=== PATIENT | female | born 1930 | race Hispanic/Latino ===

== ENCOUNTER 2016-12-11 17:18 | Inpatient (IN) | payer MEDICARE ==
--- NOTE | 2016-12-11 18:11 | Emergency Department Report ---
Chief Complaint: Dyspnea/Respdistress Stated Complaint: STAGE 5 KIDNEY FAILURE/TUNDE Time Seen by Provider: 12/11/16 18:04 - HPI History of Present Illness: 86-year-old female with past medical history end-stage 5 renal disease non-dialysis followed by Dr. Altamirano comes in today for concerns that she did not sleep well as haven't possible sinus drainage increased shortness of breath up her back pain lower leg extremity swelling and no appetite little nauseated no vomiting no diarrhea. Admits to a little cough. She reports that she does take Lasix on Thursday but has had a 1 pound weight increase from yesterday to today. - Exam Vital Signs: Vital Signs 12/11/16 17:28 Temperature 97.5 F L Pulse Rate 75 Respiratory 24 Rate Blood Pressure 144/88 O2 Sat by Pulse 96 Oximetry Physical Exam: Patient is alert and oriented 3 cardiac regular rate and rhythm respiratory clear to discussion bilateral abdomen soft nontender nondistended bilateral lower leg edema right little more than left. MSE screening note: Focused history and physical exam performed. Due to findings the following was ordered: Shortness of breath protocols ordered. With a BNP added chest x-ray ordered patient be evaluated in the back ED Disposition for MSE Condition: Stable
--- NOTE | 2016-12-11 18:27 | Emergency Department Report ---
Blank Doc - Documentation Documentation: Triage EKG brought to me for evaluation. EKG was discussed with Dr. Silvestre at 18 :00. States the EKG does not represent a STEMI
[2016-12-11 18:50] LABS: Basophils % (Auto) 0.3 % (0.0-1.8); Eosinophils % (Auto) 0.4 % (0.0-4.3); Hematocrit 34.6 % (30.3-42.9); Mean Corpuscular HGB Conc 32 % (30-34); Mean Corpuscular Hemoglobin 29 pg (28-32); Mean Corpuscular Volume 92 fl (79-97); Platelet Count 180 K/mm3 (140-440); Red Blood Count 3.75 M/mm3 (3.65-5.03); Red Cell Distribution Width 15.7 % (13.2-15.2); White Blood Count 7.2 K/mm3 (4.5-11.0)
[2016-12-11 19:25] LABS: Anion Gap 18 mmol/L; Blood Urea Nitrogen 45 mg/dL (7-17); Calcium 9.9 mg/dL (8.4-10.2); Carbon Dioxide 24 mmol/L (22-30); Chloride 103.9 mmol/L (98-107); Glucose 108 mg/dL (65-100); Potassium 5.2 mmol/L (3.6-5.0); Sodium 141 mmol/L (137-145)
--- NOTE | 2016-12-11 22:48 | XRay Report ---
FINAL REPORT PROCEDURE: XR CHEST ROUTINE 2V TECHNIQUE: Chest radiograph anteroposterior view. CPT 40530 HISTORY: Shortness of breath COMPARISON: No prior studies are available for comparison. FINDINGS: Heart: Cardiac enlargement. Mediastinum/Vessels: Aorta is calcified. Central vascular prominence.. Lungs/Pleural space: Interstitial accentuation. Perihilar opacities both with edema or infiltrates. Small pleural effusions. Right apical pleural thickening.. Bony thorax: No acute osseous abnormality. Life support devices: None. IMPRESSION: Perihilar edema or infiltrates. Small pleural effusions..
--- NOTE | 2016-12-11 23:19 | Emergency Department Report ---
ED Shortness of Breath HPI - General Chief Complaint: Dyspnea/Respdistress Stated Complaint: STAGE 5 KIDNEY FAILURE/TUNDE Time Seen by Provider: 12/11/16 18:04 Source: patient Mode of arrival: Wheelchair Limitations: Physical Limitation - History of Present Illness Initial Comments: 86-year-old female with past medical history of sarcoidosis, COPD, GERD, hypertension, stage V kidney disease presents to the hospital with complaints of increased shortness of breath since this morning. Patient states experiencing significant dyspnea on exertion, worsening ankle and lower extremity edema, and again 1 pound compared to yesterday. She does deny orthopnea or PND but states when she lies supine she has increased postnasal drip which results in clear brown sputum. Patient also complaining of feeling weak overall. Patient has been compliant with her Lasix 20 mg once a week with last dose on the . Patient does not home oxygen and denies history CHF. Patient complained that she had one episodic episode of left upper chest pain lasted for 1 second last night. She also states she's been experiencing a lot of gas in her stomach. Patient is complaining of mid back pain that improved with a heating pad. Patient is being monitored by Dr. Altamirano regarding her kidney function. Her other specialists i.e. [facility] and [facility] nonaffiliated. - Related Data Allergies Allergy/AdvReac Type Severity Reaction Status Date / Time Sulfa (Sulfonamide Allergy Hives Verified 12/11/16 17:30 Antibiotics) ED Review of Systems ROS: Stated complaint: STAGE 5 KIDNEY FAILURE/TUNDE Other details as noted in HPI Comment: All other systems reviewed and negative Other: Constitutional: No fevers chills Eyes: No eye pain visual changes or discharge ENT: No ear pain or throat pain Neck: Denies pain Respiratory: Denies cough wheezing shortness of breath at rest shortness of breath or exertion, orthopnea or PND Cardiovascular: Denies chest pain, palpitations, syncope Endocrine: Denies excessive sweating, intolerance to cold, increased thirst GI: Denies abdominal pain, nausea, vomiting, diarrhea, constipation, melena hematochezia : Denies dysuria, urinary frequency, or urgency Musculoskeletal: Denies back pain, joint swelling Skin: Denies rash, lesions, erythema Neurologic: Denies headache, numbness, weakness Psychiatric: Denies suicidal ideation, hallucinations Hematological/lymphatic: Denies easy bruising, lymphadenopathy ED Past Medical Hx - Past Medical History Hx Hypertension: Yes Hx GERD: Yes Hx Renal Disease: Yes (STAGE 5) Hx Arthritis: Yes (RHEUMATOID) Hx COPD: Yes ("DAMAGED LUNGS") Additional medical history: SARCOIDOSIS. PNEUMONIA. THYROID - Surgical History Hx Cholecystectomy: Yes Hx Appendectomy: Yes Additional Surgical History: THYROID GOITER REMOVED. HYSTERECTOMY. VASCULAR SURGERY LEFT ARM. LUNG BIOPSY - Social History Smoking Status: Never Smoker Substance Use Type: None ED Physical Exam - General Limitations: Physical Limitation - Other Other exam information: General: No limitations, patient is alert in no acute distress Head exam: Atraumatic, normocephalic Eyes exam: Normal appearance, pupils equal reactive to light, extraocular movements intact ENT: Moist mucous membrane, normal oropharynx Neck exam: Normal inspection, full range of motion, no meningismus nontender Respiratory exam: Clear to auscultation bilateral, no wheezes, rales, crackles Cardiovascular: Normal rate and rhythm, normal heart sounds Abdomen: Soft, nondistended, and nontender, with normal bowel sounds, no rebound, or guarding Extremity: Full range of motion normal inspection no deformity, 1+ pitting edema distal extremity Back: Normal Inspection, full range of motion, no tenderness Neurologic: Alert, oriented x3, cranial nerves intact, no motor or sensory deficit Psychiatric: normal affect, normal mood Skin: Warm, dry, intact ED Course Vital Signs 12/11/16 12/11/16 17:28 20:50 Temperature 97.5 F L Pulse Rate 75 74 Respiratory 24 20 Rate Blood Pressure 144/88 Blood Pressure 144/83 [Right] O2 Sat by Pulse 96 95 Oximetry - Reevaluation(s) Reevaluation #1: 12/11/16 23:31 pt stable o2 sat flucates between 91-95 - Consultations Consultation #1: 12/11/16 23:[address] Saravia who was able to look up patient record. States last CR 2.8 and therefore she is at her baseline. Suggest that symptoms are lung/sarcoid related and recommends pulmonology consultation during admission 12/11/16 23:31 ED Medical Decision Making - Lab Data Result diagrams: 12/11/16 18:32 12/11/16 18:32 Lab Results 12/11/16 12/11/16 12/11/16 Range/Units 18:32 18:32 18:32 WBC 7.2 (4.5-11.0) K/mm3 RBC 3.75 (3.65-5.03) M/mm3 Hgb 11.0 (10.1-14.3) gm/dl Hct 34.6 (30.3-42.9) % MCV 92 (79-97) fl MCH 29 (28-32) pg MCHC 32 (30-34) % RDW 15.7 H (13.2-15.2) % Plt Count 180 (140-440) K/mm3 Lymph % (Auto) 8.4 L (13.4-35.0) % [place] % (Auto) 6.7 (0.0-7.3) % Eos % (Auto) 0.4 (0.0-4.3) % Baso % (Auto) 0.3 (0.0-1.8) % Lymph # 0.6 L (1.2-5.4) K/mm3 [place] # 0.5 (0.0-0.8) K/mm3 Eos # 0.0 (0.0-0.4) K/mm3 Baso # 0.0 (0.0-0.1) K/mm3 Seg Neutrophils % 84.2 H (40.0-70.0) % Seg Neutrophils # 6.1 (1.8-7.7) K/mm3 Sodium 141 (137-145) mmol/L Potassium 5.2 H (3.6-5.0) mmol/L Chloride 103.9 (98-107) mmol/L Carbon Dioxide 24 (22-30) mmol/L Anion Gap 18 mmol/L BUN 45 H (7-17) mg/dL Creatinine 2.6 H (0.7-1.2) mg/dL Estimated GFR 17 ml/min BUN/Creatinine Ratio 17.30 % Glucose 108 H (65-100) mg/dL Calcium 9.9 (8.4-10.2) mg/dL Troponin T < 0.010 (0.00-0.029) ng/mL NT-Pro-B Natriuret Pep > 65775 H (0-900) pg/mL - EKG Data -: EKG Interpreted by Me (sinus rate 74 PVC left atrial enlargement, left axis deviation, LBBB) - EKG Data When compared to previous EKG there are: previous EKG unavailable - Radiology Data Radiology results: report reviewed (cxr: perihilar edema or infiltrates, nsmall pelural effusion) - Medical Decision Making Patient will be admitted to the hospital for further workup and management of her dyspnea symptoms. Nephrology has been consulted. EKg Was initially reviewed by Dr. Pacheco and iscussed with Dr. Silvestre and no signs of STEMI was identified. No previous EKG for comparison. There is no previous records regarding patient's heart function available at this time - Differential Diagnosis sarcoidosis, CHF, bronchitis, renal failure and pneumonia Critical Care Time: No Critical care attestation.: If time is entered above; I have spent that time in minutes in the direct care of this critically ill patient, excluding procedure time. ED Disposition Clinical Impression: Dyspnea, Hx of sarcoidosis, COPD (chronic obstructive pulmonary disease), Leg edema, Elevated brain natriuretic peptide (BNP) level Disposition: OP ADMITTED IP TO THIS HOSP Is pt being admited?: Yes Condition: Stable Time of Disposition: 23:30
--- NOTE | 2016-12-11 23:46 | History and Physical Report ---
History of Present Illness Date of examination: 12/11/16 History of present illness: 86 year old woman with history of sarcoid, hypertension, chronic kidney disease , heart problems comes emergency room with complaints of shortness of breath that started this morning. Also state that her feet have been swelling for a few days. She took Lasix 2 days ago but gained a pound over the next day. She denies PND or orthopnea. Complaining of cough productive of brown phlegm denies fever or chills. Patient states that her Lasix was decreased from 40 mg to 20 mg in the last month Patient denies chest pain, palpitation, abdominal pain, hematochezia, dysuria , frequency, focal weakness, dysarthria, fever chills, polydipsia polyuria, hot or cold intolerance, easy bruisability, or rash or bleeding from mucosal membrane, rhinorrhea, epistaxis, earache, tinnitus, blurry vision, eye discharge , anxiety, depression. Other review of systems negative PAST SURGICAL HISTORY: Goiter removal, cholecystectomy, hysterectomy, appendectomy SOCIAL HISTORY: Denies alcohol, tobacco, drugs FAMILY HISTORY: Hypertension Medications and Allergies Allergies Allergy/AdvReac Type Severity Reaction Status Date / Time Sulfa (Sulfonamide Allergy Hives Verified 12/11/16 17:30 Antibiotics) Exam - Physical Exam Narrative exam: Gen. appearance: Patient lying in bed, no apparent distress HEENT: Normocephalic, atraumatic, pupils equally round and reactive to light, extraocular movement intact, and no sclericterus,. No JVD or thyromegaly or nodule,neck supple, no carotid bruit ,mucous membranes moist, no exudate or erythema Heart: S1, S2, regular rate and rhythm Lungs: Crackles bilaterally, breathing comfortable Abdomen: Positive bowel sounds, nontender, nondistended, no organomegaly Extremity: 2+edema, no cyanosis, clubbing Skin: No rash, nodules, warm, dry Neuro: Oriented 3, cranial nerves II-12 intact, speech is fluent, motor and sensory intact - Constitutional Vitals: Temp Pulse Resp BP Pulse Ox 97.5 F L 74 20 144/83 95 12/11/16 17:28 12/11/16 20:50 12/11/16 20:50 12/11/16 20:50 12/11/16 20:50 Results - Labs CBC & Chem 7: 12/11/16 18:32 12/11/16 18:32 Labs: Abnormal lab results 12/11/16 12/11/16 12/11/16 Range/Units 18:32 18:32 18:32 RDW 15.7 H (13.2-15.2) % Lymph % (Auto) 8.4 L (13.4-35.0) % Lymph # 0.6 L (1.2-5.4) K/mm3 Seg Neutrophils % 84.2 H (40.0-70.0) % Potassium 5.2 H (3.6-5.0) mmol/L BUN 45 H (7-17) mg/dL Creatinine 2.6 H (0.7-1.2) mg/dL Glucose 108 H (65-100) mg/dL NT-Pro-B Natriuret Pep > 70811 H (0-900) pg/mL - Imaging and Cardiology EKG: image reviewed Chest x-ray: report reviewed Assessment and Plan Shortness of breath rule out fluid overload versus pneumonia Sarcoidosis Hypertension Chronic kidney disease Admits medicine Evens dose of Lasix now, check CT chest, d-dimer Consult renal Continue appropriate outpatient medication, start DVT prophylaxis
[2016-12-11] MEDS ORDERED: DULCOLAX PR PRN (23:47)
[2016-12-11] MEDS ORDERED: TYLENOL PO PRN (23:47)
[2016-12-11] MEDS ORDERED: PROVENTIL IH PRN (23:47)
[2016-12-11] MEDS ORDERED: MILK OF MAGNESIA PO PRN (23:47)
[2016-12-11] MEDS ORDERED: LASIX IV ONE ×2 (23:47)
[2016-12-11] MEDS ORDERED: ZOFRAN IV PRN (23:47)
[2016-12-12 00:53] LABS: Creatine Kinase MB 1.7 ng/mL (0.0-4.0)
[2016-12-12] MEDS ORDERED: LASIX ONE ×2 (00:56→03:51)
[2016-12-12 00:57] LABS: Creatine Kinase 22 units/L (30-135)
--- NOTE | 2016-12-12 01:51 | Cat Scan Report ---
FINAL REPORT EXAM: CT CHEST WO CON HISTORY: sob COMPARISON: Chest x-ray from December 11, 2016. TECHNIQUE: Contiguous axial images were obtained. Additional sagittal and coronal reformatted images were obtained. FINDINGS: Mild to moderate cardiac enlargement. Ascending thoracic aorta measures 3.4 centimeters in diameter within normal limits. Moderate severe calcified plaque along the thoracic aorta. Severe coronary artery calcifications. Borderline to mildly enlarged intrathoracic lymph nodes. For example there is a pretracheal lymph node measuring 11 by 10 millimeters. No enlarged axillary lymph nodes. Bronchiectasis with scarring and retraction of perihilar structures superiorly. There is diffuse bronchiectasis. Scarring at the lung apices. Nonspecific interstitial densities at the lung bases and septal thickening concerning for superimposed edema. Trace bilateral pleural effusions. No obstructive lesion centrally within the tracheobronchial tree. Mild to moderate degenerative changes of the thoracic spine. Nodular thickening of the adrenal glands. Partial visualization of hyperdense lesions within the left kidney. These may reflect hyperdense cysts. Solid nodule cannot be excluded. IMPRESSION: There are chronic areas of scarring and bronchiectasis involving the bilateral perihilar regions with retraction of the hilar structures superiorly. Borderline to mildly enlarged intrathoracic lymph nodes. Combination of findings are concerning for chronic inflammatory process such as sarcoidosis. There is mild to moderate cardiac enlargement with septal thickening lung bases and trace effusions concerning for superimposed edema. Partial visualization of hyperdense left renal lesions which may reflect hyperdense cyst. Solid renal mass cannot be excluded. This could be further evaluated by CT of the abdomen with without contrast if renal function allows.
[2016-12-12 07:34] LABS: Basophils % (Auto) 0.4 % (0.0-1.8); Eosinophils % (Auto) 0.8 % (0.0-4.3); Hemoglobin 10.2 gm/dl (10.1-14.3); Mean Corpuscular HGB Conc 32 % (30-34); Mean Corpuscular Hemoglobin 29 pg (28-32); Mean Corpuscular Volume 92 fl (79-97); Platelet Count 174 K/mm3 (140-440); Red Blood Count 3.47 M/mm3 (3.65-5.03); Red Cell Distribution Width 15.6 % (13.2-15.2); White Blood Count 6.6 K/mm3 (4.5-11.0)
[2016-12-12 07:51] LABS: BUN/Creatinine Ratio 18.46; Chloride 104.7 mmol/L (98-107)
[2016-12-12 07:53] LABS: Creatine Kinase MB 1.7 ng/mL (0.0-4.0)
[2016-12-12 07:54] LABS: Creatine Kinase 20 units/L (30-135)
--- NOTE | 2016-12-12 08:09 | Admit Criteria Form ---
Admission Criteria Documentation: COPD Clinical Indications for Admission to Inpatient Care (Place 'X' for any and all applicable criteria): Admission is indicated for ANY ONE of the following (1)(2)(3): [ ]I. Acute exacerbation by high-risk comorbidity (e.g., pneumonia, dysrhythmia, heart failure, pleural effusion, pneumothorax) or severe underlying COPD (e.g., steroid dependent) [X ]II. Inpatient admission required rather than observation care (see Chronic Obstructive Pulmonary Disease: Observation Care) because of ANY ONE of the following: [X ]a) New or pre-existing signs or symptoms of COPD (eg, dyspnea or Tachypnea at rest or with minimal activity) that persist despite outpatient and observation care treatment [ ]b) New-onset hypoxemia (room air SaO2 less than 90%, PO2 less than 60 mm Hg (8.0 kPa)) that persists despite outpatient and observation care treatment [ ]c) Worsening of pre-existing hypoxemia (eg, new or increased requirement for supplemental oxygen to maintain oxygenation at baseline level) that persists despite outpatient and observation care treatment, with oxygen treatment needs performable only in acute inpatient setting [ ]d) Hypercarbia (PCO2 greater than 40 mm Hg (5.3 kPa))-induced respiratory acidosis (pH less than 7.35) that persists despite outpatient and observation care treatment [ ]e) Supplemental oxygen or respiratory treatments for over 24 hours that are performable only in acute inpatient setting [ ]f) Chest tube placement with active evacuation (e.g., suction, drainage) (5) [ ]g) Other condition, treatment or monitoring requiring inpatient admission [ ]III. Planned invasive surgical or diagnostic procedures requiring acute- care hospitalization [ ]IV. Acute respiratory failure (e.g., uncompensated hypercarbia, severe hypoxemia) [ ]V. Severe comorbid condition (e.g., severe steroid myopathy, acute vertebral fracture) that has acutely worsened pulmonary function [ ]. Confusion state, lethargy, obtundation, stupor or coma Extended stay beyond goal length of stay may be needed for (31)(32): [ ]a ) Respiratory Failure. [ ]b) Severe or persisting hypoxemia or hypercarbia [ ]c) Severe or persistent dyspnea [ ]d) Comorbidities (e.g. chronic heart failure, atrial fibrillation with rapid response, pneumonia) [ ]e) Malnutrition The original [facility] content created by [facility] has been revised. The portions of the content which have been revised are identified through the use of italic text or in bold, and [facility] has neither reviewed nor approved the modified material. All other unmodified content is copyright [facility]. Please see references footnoted in the original [facility] edition 2016 Admission Criteria Met: Yes
--- NOTE | 2016-12-12 11:45 | Nuclear Medicine Report ---
LUNG SCAN, VENTILATION AND PERFUSION: History: Dyspnea. Findings: Inhalation of Xenon gas demonstrates a heterogeneous distribution of the activity throughout both lungs. The wash out phases show heterogeneous retention of activity bilaterally. After injection of Technetium 99m macroaggregated albumin gamma camera imaging of the lungs in multiple projections demonstrates normal pulmonary contours with a heterogeneous nonsegmental distribution of activity. No focal areas of perfusion deficiency are identified. IMPRESSION: Probably COPD. Low probability for pulmonary embolism.
[2016-12-12] MEDS: LOVENOX SUB-Q SCH (13:27)
--- NOTE | 2016-12-12 16:27 | Consultation ---
History of Present Illness - Reason for Consult Consult date: 12/12/16 chronic renal failure - History of Present Illness Mrs. Gusman is an 86yo with stage IV CKD and pulmonary sarcoidosis w/ history of BOOP who presented to the ED with SOB. She denies fever, chills. She reports cough productive of clear sputum. She reports dyspnea with minimal exertion/ ALDs. In addition to SOB, patient reports ankle swelling. Mrs. Gusman reports that lasix was decreased from 40mg daily to 20mg daily. Past History Past Medical History: other (Stage IV chronic kidney disease, pulmonary sarcoidosis, BOOP, hypothyroidism) Social history: no significant social history Family history: no significant family history Medications and Allergies Allergies Allergy/AdvReac Type Severity Reaction Status Date / Time Sulfa (Sulfonamide Allergy Hives Verified 12/11/16 17:30 Antibiotics) Home Medications Medication Instructions Recorded Confirmed Last Taken Type ALBUTEROL Inhaler [Proair] 2 puff IH QID PRN 12/12/16 12/12/16 12/11/16 History Captopril [Capoten] 25 mg PO BID 12/12/16 12/12/16 12/11/16 History Carvedilol [Coreg] 25 mg PO BID 12/12/16 12/12/16 12/11/16 History Cetirizine HCl [ZyrTEC] 10 mg PO DAILY 12/12/16 12/12/16 12/11/16 History Fluticasone/Salmeterol [Advair 1 dose INNOSTRIL DAILY 12/12/16 12/12/16 History 250-50 Diskus] Furosemide [Lasix] 20 mg PO QWEEK 12/12/16 12/12/16 12/11/16 History Levothyroxine [Synthroid] 100 mcg PO QAM 12/12/16 12/12/16 12/11/16 History Montelukast [Singulair] 10 mg PO QPM 12/12/16 12/12/16 12/11/16 History Multivit-Min/FA/Lycopen/Lutein 1 each PO DAILY 12/12/16 12/12/16 12/11/16 History [Centrum Silver Tablet] Prednisone [predniSONE] 2.5 mg PO QDAY 12/12/16 12/12/16 12/11/16 History Vit C/E/Zn/Coppr/Lutein/Zeaxan 1 each PO DAILY 12/12/16 12/12/16 12/11/16 History [Preservision Areds 2 Softgel] Active Meds: Active Medications Acetaminophen (Tylenol) 650 mg PO Q4H PRN PRN Reason: Pain MILD(1-3)/Fever >100.5/BUENO Albuterol (Proventil) 2.5 mg IH Q3HRT PRN PRN Reason: Shortness Of Breath Bisacodyl (Dulcolax) 10 mg AK QDAY PRN PRN Reason: Constipation unrelieved by MOM Enoxaparin Sodium (Lovenox) 30 mg SUB-Q QDAY ALEK Last Admin: 12/12/16 13:27 Dose: 30 mg Magnesium Hydroxide (Milk Of Magnesia) 30 ml PO Q4H PRN PRN Reason: Constipation Ondansetron HCl (Zofran) 4 mg IV Q8H PRN PRN Reason: N/V unrelieved by Reglan Review of Systems Constitutional: no fever, no chills, no sweats Cardiovascular: shortness of breath, dyspnea on exertion, leg edema, no chest pain Respiratory: cough with sputum (clear), shortness of breath, dyspnea on exertion , no hemoptysis Gastrointestinal: no abdominal pain, no nausea, no vomiting, no diarrhea, no constipation Genitourinary Female: no dysuria Menstruation: postmenopausal Integumentary: no rash, no pruritis Neurological: no headaches Exam - Vital Signs Vital signs: Vital Signs Temp Pulse Resp BP Pulse Ox 97.5 F L 75 24 144/88 96 12/11/16 17:28 12/11/16 17:28 12/11/16 17:28 12/11/16 17:28 12/11/16 17:28 - General Appearance General appearance: well-developed, well-nourished, other (+conversational dyspnea) EENT: ATNC Respiratory: Decreased Breath Sounds Heart: regular, S1S2 Gastrointestinal: Present: normal. Absent: tenderness, distended Integumentary: no rash Neurologic: no focal deficit, alert and oriented x3 Musculoskeletal: Present: other (trace ankle edema) Psychiatric: mood/affect appropriate, cooperative Results - Lab Results 12/12/16 07:10 12/12/16 07:10 Most recent lab results Calcium 9.0 mg/dL (8.4-10.2) 12/12/16 07:10 Assessment and Plan Impression: * Stage IV chronic kidney disease - renal function at baseline * Acute hypoxic respiratory failure - likely secondary to pulmonary sarcoidosis/ bronchiectasis * Hyperkalemia- resolved * Hypertension Plan: * Have reviewed CT; pulmonary consulted; case discussed with Dr. Ramsay - will start Pulmicort 0.5 BID, Brovana 25mcg BID and Prednisone 30mg daily per recs. * Diuresis prn * Resume home medications * Restrict dietary K intake * Strict I/O * Avoid potential nephrotoxins * AM labs are ordered
--- NOTE | 2016-12-12 17:28 | Progress Note ---
Assessment and Plan Assessment and plan: --Acute respiratory distress Multifactorial secondary to fluid overload as well as possible exacerbation sarcoidosis Patient has remote history of sarcoidosis and BOOP Oxygen titrated to O2 sats more than 90%, IV diuretics Pulmonary consultation --Elevated D dimers Negative PE or DVT --Hyperkalemia, corrected Closely monitor --Hypertension moderate control Continue current management and when necessary hydralazine --chronic kidney disease stage IV Closely monitor renal function, avoid nephrotoxic medication Nephrology consultation, input-output monitoring --DVT prophylaxis With heparin --CODE STATUS; full code History Interval history: Patient seen and evaluated medical records reviewed Admitted with shortness of breath Patient feels slightly better denies any chest pain shortness of breath significantly improved Denies nausea vomiting or abdominal pain Alert and awake responding appropriately, not in acute distress Hospitalist Physical - Constitutional Vitals: Temp Pulse Resp BP Pulse Ox 97.5 F L 85 18 148/81 96 12/12/16 15:00 12/12/16 15:00 12/12/16 15:00 12/12/16 15:00 12/12/16 15:00 General appearance: Present: no acute distress, cachectic - EENT Eyes: Present: PERRL, EOM intact - Neck Neck: Present: supple, normal ROM - Respiratory Respiratory effort: normal Respiratory: bilateral: diminished, rales - Cardiovascular Rhythm: regular Heart Sounds: Present: S1 & S2 - Extremities Extremities: no ischemia, pulses intact Extremity abnormal: edema Peripheral Pulses: within normal limits - Abdominal General gastrointestinal: soft, non-tender, non-distended, normal bowel sounds - Integumentary Integumentary: Present: clear, warm - Psychiatric Psychiatric: appropriate mood/affect, cooperative - Neurologic Neurologic: CNII-XII intact, moves all extremities Results - Labs CBC & Chem 7: 12/13/16 05:57 12/13/16 05:57 Labs: Laboratory Last Values WBC 6.6 K/mm3 (4.5-11.0) 12/12/16 07:10 RBC 3.47 M/mm3 (3.65-5.03) L 12/12/16 07:10 Hgb 10.2 gm/dl (10.1-14.3) 12/12/16 07:10 Hct 32.0 % (30.3-42.9) 12/12/16 07:10 MCV 92 fl (79-97) 12/12/16 07:10 MCH 29 pg (28-32) 12/12/16 07:10 MCHC 32 % (30-34) 12/12/16 07:10 RDW 15.6 % (13.2-15.2) H 12/12/16 07:10 Plt Count 174 K/mm3 (140-440) 12/12/16 07:10 Lymph % (Auto) 14.0 % (13.4-35.0) 12/12/16 07:10 [place] % (Auto) 11.2 % (0.0-7.3) H 12/12/16 07:10 Eos % (Auto) 0.8 % (0.0-4.3) 12/12/16 07:10 Baso % (Auto) 0.4 % (0.0-1.8) 12/12/16 07:10 Lymph # 0.9 K/mm3 (1.2-5.4) L 12/12/16 07:10 [place] # 0.7 K/mm3 (0.0-0.8) 12/12/16 07:10 Eos # 0.1 K/mm3 (0.0-0.4) 12/12/16 07:10 Baso # 0.0 K/mm3 (0.0-0.1) 12/12/16 07:10 Seg Neutrophils % 73.6 % (40.0-70.0) H 12/12/16 07:10 Seg Neutrophils # 4.8 K/mm3 (1.8-7.7) 12/12/16 07:10 D-Dimer 1349.66 ng/mlDDU (0-234) H 12/12/16 00:16 Sodium 140 mmol/L (137-145) 12/12/16 07:10 Potassium 5.0 mmol/L (3.6-5.0) 12/12/16 07:10 Chloride 104.7 mmol/L (98-107) 12/12/16 07:10 Carbon Dioxide 23 mmol/L (22-30) 12/12/16 07:10 Anion Gap 17 mmol/L 12/12/16 07:10 BUN 48 mg/dL (7-17) H 12/12/16 07:10 Creatinine 2.6 mg/dL (0.7-1.2) H 12/12/16 07:10 Estimated GFR 17 ml/min 12/12/16 07:10 BUN/Creatinine Ratio 18.46 % 12/12/16 07:10 Glucose 109 mg/dL (65-100) H 12/12/16 07:10 Calcium 9.0 mg/dL (8.4-10.2) 12/12/16 07:10 Total Creatine Kinase 20 units/L (30-135) L 12/12/16 07:10 CK-MB (CK-2) 1.7 ng/mL (0.0-4.0) 12/12/16 07:10 CK-MB (CK-2) Rel Index 8.5 (0-4) H 12/12/16 07:10 Troponin T < 0.010 ng/mL (0.00-0.029) 12/12/16 07:10 NT-Pro-B Natriuret Pep > 41073 pg/mL (0-900) H 12/11/16 18:32
[2016-12-12] MEDS: CLARITIN PO SCH (18:42)
[2016-12-12] MEDS: DELTASONE PO SCH (18:42)
[2016-12-12] MEDS ORDERED: BROVANA NEBU IH SCH (20:00)
[2016-12-12] MEDS: SINGULAIR PO SCH (21:24)
[2016-12-12] MEDS: COREG PO SCH (21:24)
[2016-12-12] MEDS: PULMICORT IH SCH (21:34)
[2016-12-12] MEDS: BROVANA NEBU IH SCH (21:34)
[2016-12-13] MEDS: SYNTHROID PO SCH (05:22)
[2016-12-13] MEDS ORDERED: SYNTHROID PO SCH (06:00)
[2016-12-13 06:48] LABS: BUN/Creatinine Ratio 19.62; Potassium 5.5 mmol/L (3.6-5.0)
[2016-12-13 06:54] LABS: Hemoglobin 10.7 gm/dl (10.1-14.3); Mean Corpuscular HGB Conc 32 % (30-34); Mean Corpuscular Hemoglobin 29 pg (28-32); Mean Corpuscular Volume 93 fl (79-97); Platelet Count 162 K/mm3 (140-440); Red Blood Count 3.67 M/mm3 (3.65-5.03); Red Cell Distribution Width 15.8 % (13.2-15.2); White Blood Count 5.4 K/mm3 (4.5-11.0)
[2016-12-13 06:55] LABS: Mean Platelet Volume 7.5 fl (6-12)
[2016-12-13] MEDS: PULMICORT IH SCH ×2 (07:55→20:28)
[2016-12-13] MEDS: BROVANA NEBU IH SCH ×2 (07:56→20:27)
[2016-12-13 09:46] LABS: Anisocytosis 1+; Basophils % (Manual) 0 % (0.0-1.8); Blastocytes % (Manual) 0 %; Diff Status Complete; Eosinophils % (Manual) 0 % (0.0-4.3)
[2016-12-13] MEDS: COREG PO SCH ×2 (11:36→21:47)
[2016-12-13] MEDS: CLARITIN PO SCH (11:36)
[2016-12-13] MEDS: LOVENOX SUB-Q SCH (11:37)
[2016-12-13] MEDS: DELTASONE PO SCH (11:37)
--- NOTE | 2016-12-13 13:42 | Consultation ---
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 CT scan shows diffuse ground glass with bronchiectasis and several areas of lung scarring and hyperinflation. Has renal disease so renal consulted, changed lasix therapy and they asked me to see given history of sarcoid. I recommend steroids which the patient and family feel have helped significantly. She is followed by Replaced by [facility] in [facility]. Remainder of the review is negative. Past History Past Medical History: other (Stage IV chronic kidney disease, pulmonary sarcoidosis, BOOP, hypothyroidism) Social history: no significant social history Family history: no significant family history Medications and Allergies Allergies Allergy/AdvReac Type Severity Reaction Status Date / Time Sulfa (Sulfonamide Allergy Hives Verified 12/11/16 17:30 Antibiotics) Home Medications Medication Instructions Recorded Confirmed Last Taken Type ALBUTEROL Inhaler [Proair] 2 puff IH QID PRN 12/12/16 12/12/16 12/11/16 History Captopril [Capoten] 25 mg PO BID 12/12/16 12/12/16 12/11/16 History Carvedilol [Coreg] 25 mg PO BID 12/12/16 12/12/16 12/11/16 History Cetirizine HCl [ZyrTEC] 10 mg PO DAILY 12/12/16 12/12/16 12/11/16 History Fluticasone/Salmeterol [Advair 1 dose INNOSTRIL DAILY 12/12/16 12/12/16 History 250-50 Diskus] Furosemide [Lasix] 20 mg PO QWEEK 12/12/16 12/12/16 12/11/16 History Levothyroxine [Synthroid] 100 mcg PO QAM 12/12/16 12/12/16 12/11/16 History Montelukast [Singulair] 10 mg PO QPM 12/12/16 12/12/16 12/11/16 History Multivit-Min/FA/Lycopen/Lutein 1 each PO DAILY 12/12/16 12/12/16 12/11/16 History [Centrum Silver Tablet] Prednisone [predniSONE] 2.5 mg PO QDAY 12/12/16 12/12/16 12/11/16 History Vit C/E/Zn/Coppr/Lutein/Zeaxan 1 each PO DAILY 12/12/16 12/12/16 12/11/16 History [Preservision Areds 2 Softgel] Active Meds: Active Medications Acetaminophen (Tylenol) 650 mg PO Q4H PRN PRN Reason: Pain MILD(1-3)/Fever >100.5/BUENO Albuterol (Proventil) 2.5 mg IH Q3HRT PRN PRN Reason: Shortness Of Breath Arformoterol Tartrate (Brovana Nebu) 15 mcg IH Q12HRT [facility] Last Admin: 12/13/16 07:56 Dose: 15 mcg Bisacodyl (Dulcolax) 10 mg CA QDAY PRN PRN Reason: Constipation unrelieved by MOM Budesonide (Pulmicort) 0.5 mg IH Q12HRT [facility] Last Admin: 12/13/16 07:55 Dose: 0.5 mg Carvedilol (Coreg) 25 mg PO BID [facility] Last Admin: 12/13/16 11:36 Dose: 25 mg Enoxaparin Sodium (Lovenox) 30 mg SUB-Q QDAY [facility] Last Admin: 12/13/16 11:37 Dose: 30 mg Levothyroxine Sodium (Synthroid) 100 mcg PO DAILY@0600 [facility] Last Admin: 12/13/16 05:22 Dose: 100 mcg Loratadine (Claritin) 10 mg PO QDAY [facility] Last Admin: 12/13/16 11:36 Dose: 10 mg Magnesium Hydroxide (Milk Of Magnesia) 30 ml PO Q4H PRN PRN Reason: Constipation Montelukast Sodium (Singulair) 10 mg PO QHS [facility] Last Admin: 12/12/16 21:24 Dose: 10 mg Ondansetron HCl (Zofran) 4 mg IV Q8H PRN PRN Reason: N/V unrelieved by Reglan Prednisone (Deltasone) 30 mg PO QDAY [facility] Last Admin: 12/13/16 11:37 Dose: 30 mg Review of Systems All systems: negative Physical Examination Vital signs: Vital Signs Temp Pulse Resp BP Pulse Ox 97.5 F L 75 24 144/88 96 03/16/17 17:28 12/11/16 17:28 12/11/16 17:28 12/11/16 17:28 12/11/16 17:28 General appearance: no acute distress, alert, other (thin and cachetic) Eyes: non-icteric ENT: oropharynx moist Effort: normal Ascultation: Bilateral: diminished breath sounds Percussion: Bilateral: not dull Tactile fremitus: Bilateral: normal Cardiovascular: regular rate and rhythm Gastrointestinal: normoactive bowel sounds Results - Laboratory Findings CBC and BMP: 12/13/16 05:57 12/13/16 05:57 PT/INR, D-dimer D-Dimer 1349.66 ng/mlDDU (0-234) H 12/12/16 00:16 Abnormal lab findings: Abnormal Labs 12/12/16 12/12/16 12/12/16 00:16 00:16 07:10 RBC 3.47 L RDW 15.6 H [place] % (Auto) 11.2 H Lymph # 0.9 L Seg Neutrophils % 73.6 H Seg Neuts % (Manual) Lymphocytes % (Manual) Lymphocytes # (Manual) D-Dimer 1349.66 H Potassium BUN Creatinine Glucose Total Creatine Kinase 22 L CK-MB (CK-2) Rel Index 7.7 H 12/12/16 12/12/16 12/13/16 07:10 07:10 05:57 RBC RDW 15.8 H [place] % (Auto) Lymph # Seg Neutrophils % Seg Neuts % (Manual) 82.0 H Lymphocytes % (Manual) 6.0 L Lymphocytes # (Manual) 0.3 L D-Dimer Potassium BUN 48 H Creatinine 2.6 H Glucose 109 H Total Creatine Kinase 20 L CK-MB (CK-2) Rel Index 8.5 H 12/13/16 05:57 RBC RDW [place] % (Auto) Lymph # Seg Neutrophils % Seg Neuts % (Manual) Lymphocytes % (Manual) Lymphocytes # (Manual) D-Dimer Potassium 5.5 H BUN 53 H Creatinine 2.7 H Glucose 151 H Total Creatine Kinase CK-MB (CK-2) Rel Index - Diagnostic Findings CT scan - chest: image reviewed (please see HPI for interpretation) Assessment and Plan 86 y/o female with acute on chronic respiratory failure most likely multifactorial from volume overload and sarcoid exacerbation. 1. Continue prednisone 30 daily. Would allow her outside lung doc to taper in follow up. 2. Patient was negative 400 cc's, this likely helped with breathing as well. Would continue net negative state 3. Can order nebs for patient at home but would check with family first. Thank you for this consult. Will continue to follow along with you.
--- NOTE | 2016-12-13 15:06 | Progress Note ---
Assessment and Plan Impression: * Stage IV chronic kidney disease - renal function at baseline * Acute hypoxic respiratory failure - likely secondary to pulmonary sarcoidosis/ bronchiectasis * Hyperkalemia- resolved * Hypertension Plan: * CT chest findings noted. Patient currently on start Pulmicort 0.5 BID, Brovana 25mcg BID and Prednisone 30mg daily per pulmonary recommendations . * Diuresis prn * Resume home medications * Restrict dietary K intake * Strict I/O * Avoid potential nephrotoxins * Potassium level noted to be elevated at 5.5 today. Diuresis should help * Discussed with patient and her daughter at bedside Subjective Date of service: 12/13/16 Interval history: Patient feels somewhat better today. Shortness of breath is improving. Leg swelling is also getting better. No nausea or vomiting Objective - Vital Signs Vital signs: Vital Signs - 12hr 12/13/16 12/13/16 12/13/16 05:07 07:47 07:48 Temperature 97.6 F Pulse Rate 65 Pulse Rate [ Anterior Bilateral Throughout] Pulse Rate [ 84 From Monitor] Respiratory 20 18 Rate Respiratory Rate [Anterior Bilateral Throughout] Blood Pressure 110/68 [Left Arm] O2 Sat by Pulse 96 Oximetry 12/13/16 12/13/16 07:56 08:06 Temperature Pulse Rate Pulse Rate [ 72 76 Anterior Bilateral Throughout] Pulse Rate [ From Monitor] Respiratory Rate Respiratory 18 20 Rate [Anterior Bilateral Throughout] Blood Pressure [Left Arm] O2 Sat by Pulse 97 Oximetry - General Appearance General appearance: chronically ill, frail, other (elderly female) EENT: PERRL, mucous membranes moist Neck: no JVD, no thyromegaly, no carotid bruit, supple Respiratory: Present: Rales (fine basal crackles) Cardiology: regular, normal heart rate, S1S2, no murmurs Gastrointestinal: normal, normoactive bowel sounds Integumentary: no rash, other (1+ edema) - Lab 12/13/16 05:57 12/13/16 05:57 Most recent lab results Calcium 9.0 mg/dL (8.4-10.2) 12/13/16 05:57
[2016-12-13] MEDS ORDERED: LASIX IV ONE ×2 (15:07→17:00)
--- NOTE | 2016-12-13 17:00 | Progress Note ---
Assessment and Plan Assessment and plan: --Acute respiratory distress Possible exacerbation of sarcoidosis Continue oxygen, nebulizers, Pulmicort Supportive care, steroids Pulmonary following --Elevated D dimers Negative PE or DVT --Hyperkalemia, with Kayexalate Closely monitor potassium levels --Hypertension moderate control Continue current management and when necessary hydralazine --chronic kidney disease stage IV Closely monitor renal function, avoid nephrotoxic medication Nephrology consultation, input-output monitoring --DVT prophylaxis With heparin --CODE STATUS; full code Patient's condition treatment plan discussed in detail with the patient and the family member at the bedside Consults and recommendations noted and appreciated History Interval history: Patient seen and evaluated medical records reviewed Patient feels slightly better, comfortable and cheerful Denies chest pain or shortness of breath Alert awake oriented 3 not in acute distress Family member at the bedside Hospitalist Physical - Constitutional Vitals: Temp Pulse Resp BP Pulse Ox 97.6 F 76 20 110/68 97 12/13/16 05:07 12/13/16 08:06 12/13/16 08:06 12/13/16 05:07 12/13/16 07:56 General appearance: Present: no acute distress, other (thin built) - EENT Eyes: Present: PERRL, EOM intact - Neck Neck: Present: supple, normal ROM - Respiratory Respiratory effort: normal Respiratory: bilateral: diminished, rhonchi (occasional), negative: rales, wheezing - Cardiovascular Rhythm: regular Heart Sounds: Present: S1 & S2 - Extremities Extremities: no ischemia, pulses intact, pulses symmetrical Peripheral Pulses: within normal limits - Abdominal General gastrointestinal: soft, non-tender, non-distended, normal bowel sounds - Integumentary Integumentary: Present: clear, warm - Psychiatric Psychiatric: appropriate mood/affect, cooperative - Neurologic Neurologic: CNII-XII intact, moves all extremities Results - Labs CBC & Chem 7: 12/13/16 05:57 12/13/16 05:57 Labs: Laboratory Last Values WBC 5.4 K/mm3 (4.5-11.0) 12/13/16 05:57 RBC 3.67 M/mm3 (3.65-5.03) 12/13/16 05:57 Hgb 10.7 gm/dl (10.1-14.3) 12/13/16 05:57 Hct 34.0 % (30.3-42.9) 12/13/16 05:57 MCV 93 fl (79-97) 12/13/16 05:57 MCH 29 pg (28-32) 12/13/16 05:57 MCHC 32 % (30-34) 12/13/16 05:57 RDW 15.8 % (13.2-15.2) H 12/13/16 05:57 Plt Count 162 K/mm3 (140-440) 12/13/16 05:57 Lymph % (Auto) 14.0 % (13.4-35.0) 12/12/16 07:10 [place] % (Auto) 11.2 % (0.0-7.3) H 12/12/16 07:10 Eos % (Auto) 0.8 % (0.0-4.3) 12/12/16 07:10 Baso % (Auto) 0.4 % (0.0-1.8) 12/12/16 07:10 Lymph # 0.9 K/mm3 (1.2-5.4) L 12/12/16 07:10 [place] # 0.7 K/mm3 (0.0-0.8) 12/12/16 07:10 Eos # 0.1 K/mm3 (0.0-0.4) 12/12/16 07:10 Baso # 0.0 K/mm3 (0.0-0.1) 12/12/16 07:10 Add Manual Diff Complete 12/13/16 05:57 Total Counted 100 12/13/16 05:57 Seg Neutrophils % 73.6 % (40.0-70.0) H 12/12/16 07:10 Seg Neuts % (Manual) 82.0 % (40.0-70.0) H 12/13/16 05:57 Band Neutrophils % 11.0 % 12/13/16 05:57 Lymphocytes % (Manual) 6.0 % (13.4-35.0) L 12/13/16 05:57 Reactive Lymphs % (Man) 0 % 12/13/16 05:57 Monocytes % (Manual) 1.0 % (0.0-7.3) 12/13/16 05:57 Eosinophils % (Manual) 0 % (0.0-4.3) 12/13/16 05:57 Basophils % (Manual) 0 % (0.0-1.8) 12/13/16 05:57 Metamyelocytes % 0 % 12/13/16 05:57 Myelocytes % 0 % 12/13/16 05:57 Promyelocytes % 0 % 12/13/16 05:57 Blast Cells % 0 % 12/13/16 05:57 Nucleated RBC % Not Reportable 12/13/16 05:57 Seg Neutrophils # 4.8 K/mm3 (1.8-7.7) 12/12/16 07:10 Seg Neutrophils # Man 4.4 K/mm3 (1.8-7.7) 12/13/16 05:57 Band Neutrophils # 0.6 K/mm3 12/13/16 05:57 Lymphocytes # (Manual) 0.3 K/mm3 (1.2-5.4) L 12/13/16 05:57 Abs React Lymphs (Man) 0.0 K/mm3 12/13/16 05:57 Monocytes # (Manual) 0.1 K/mm3 (0.0-0.8) 12/13/16 05:57 Eosinophils # (Manual) 0.0 K/mm3 (0.0-0.4) 12/13/16 05:57 Basophils # (Manual) 0.0 K/mm3 (0.0-0.1) 12/13/16 05:57 Metamyelocytes # 0.0 K/mm3 12/13/16 05:57 Myelocytes # 0.0 K/mm3 12/13/16 05:57 Promyelocytes # 0.0 K/mm3 12/13/16 05:57 Blast Cells # 0.0 K/mm3 12/13/16 05:57 WBC Morphology Not Reportable 12/13/16 05:57 Hypersegmented Neuts Not Reportable 12/13/16 05:57 Hyposegmented Neuts Not Reportable 12/13/16 05:57 Hypogranular Neuts Not Reportable 12/13/16 05:57 Smudge Cells Not Reportable 12/13/16 05:57 Toxic Granulation Not Reportable 12/13/16 05:57 Toxic Vacuolation Not Reportable 12/13/16 05:57 Dohle Bodies Not Reportable 12/13/16 05:57 Pelger-Huet Anomaly Not Reportable 12/13/16 05:57 Sravan Rods Not Reportable 12/13/16 05:57 Platelet Estimate Appears normal 12/13/16 05:57 Clumped Platelets Not Reportable 12/13/16 05:57 Plt Clumps, EDTA Not Reportable 12/13/16 05:57 Large Platelets Not Reportable 12/13/16 05:57 Giant Platelets Not Reportable 12/13/16 05:57 Platelet Satelliting Not Reportable 12/13/16 05:57 Plt Morphology Comment Not Reportable 12/13/16 05:57 RBC Morphology Not Reportable 12/13/16 05:57 Dimorphic RBCs Not Reportable 12/13/16 05:57 Polychromasia Not Reportable 12/13/16 05:57 Hypochromasia Not Reportable 12/13/16 05:57 Poikilocytosis Not Reportable 12/13/16 05:57 Anisocytosis 1+ 12/13/16 05:57 Microcytosis Not Reportable 12/13/16 05:57 Macrocytosis Not Reportable 12/13/16 05:57 Spherocytes Not Reportable 12/13/16 05:57 Pappenheimer Bodies Not Reportable 12/13/16 05:57 Sickle Cells Not Reportable 12/13/16 05:57 Target Cells Not Reportable 12/13/16 05:57 Tear Drop Cells Not Reportable 12/13/16 05:57 Ovalocytes Not Reportable 12/13/16 05:57 Helmet Cells Not Reportable 12/13/16 05:57 Delaney-Bowers Bodies Not Reportable 12/13/16 05:57 [place] Rings Not Reportable 12/13/16 05:57 Consuelo Cells Not Reportable 12/13/16 05:57 Bite Cells Not Reportable 12/13/16 05:57 Crenated Cell Not Reportable 12/13/16 05:57 Elliptocytes Not Reportable 12/13/16 05:57 Acanthocytes (Spur) Not Reportable 12/13/16 05:57 Rouleaux Not Reportable 12/13/16 05:57 Hemoglobin C Crystals Not Reportable 12/13/16 05:57 Schistocytes Not Reportable 12/13/16 05:57 Malaria parasites Not Reportable 12/13/16 05:57 Eliot Bodies Not Reportable 12/13/16 05:57 Hem Pathologist Commnt No 12/13/16 05:57 D-Dimer 1349.66 ng/mlDDU (0-234) H 12/12/16 00:16 Sodium 141 mmol/L (137-145) 12/13/16 05:57 Potassium 5.5 mmol/L (3.6-5.0) H 12/13/16 05:57 Chloride 106.0 mmol/L (98-107) 12/13/16 05:57 Carbon Dioxide 24 mmol/L (22-30) 12/13/16 05:57 Anion Gap 17 mmol/L 12/13/16 05:57 BUN 53 mg/dL (7-17) H 12/13/16 05:57 Creatinine 2.7 mg/dL (0.7-1.2) H 12/13/16 05:57 Estimated GFR 17 ml/min 12/13/16 05:57 BUN/Creatinine Ratio 19.62 % 12/13/16 05:57 Glucose 151 mg/dL (65-100) H 12/13/16 05:57 Calcium 9.0 mg/dL (8.4-10.2) 12/13/16 05:57 Total Creatine Kinase 20 units/L (30-135) L 12/12/16 07:10 CK-MB (CK-2) 1.7 ng/mL (0.0-4.0) 12/12/16 07:10 CK-MB (CK-2) Rel Index 8.5 (0-4) H 12/12/16 07:10 Troponin T < 0.010 ng/mL (0.00-0.029) 12/12/16 07:10 NT-Pro-B Natriuret Pep > 01873 pg/mL (0-900) H 12/11/16 18:32
[2016-12-13] MEDS ORDERED: KIONEX PO ONE (17:01)
[2016-12-13] MEDS: SINGULAIR PO SCH (21:48)
[2016-12-14] MEDS: SYNTHROID PO SCH (07:29)
[2016-12-14 07:31] LABS: BUN/Creatinine Ratio 18.7; Calcium 8.6 mg/dL (8.4-10.2); Chloride 105.9 mmol/L (98-107); Potassium 4.3 mmol/L (3.6-5.0)
[2016-12-14] MEDS: PULMICORT IH SCH ×2 (08:18→20:34)
[2016-12-14] MEDS: BROVANA NEBU IH SCH ×2 (08:18→20:34)
[2016-12-14] MEDS ORDERED: DELTASONE PO SCH (10:00)
[2016-12-14] MEDS: COREG PO SCH ×2 (10:59→22:07)
[2016-12-14] MEDS: CLARITIN PO SCH (10:59)
[2016-12-14] MEDS: LOVENOX SUB-Q SCH (11:00)
[2016-12-14] MEDS: DELTASONE PO SCH (11:00)
--- NOTE | 2016-12-14 12:35 | Progress Note ---
Assessment and Plan Impression: * Stage IV chronic kidney disease - renal function at baseline * Acute hypoxic respiratory failure - likely secondary to pulmonary sarcoidosis/ bronchiectasis * Hyperkalemia- resolved * Hypertension Plan: * CT chest findings noted. Patient currently on start Pulmicort 0.5 BID, Brovana 25mcg BID and Prednisone 30mg daily per pulmonary recommendations . * Diuresis prn * Resume home medications * Restrict dietary K intake * Strict I/O * Avoid potential nephrotoxins * Her serum creatinine seems to have bumped up to 3.1. Shall hold her Lasix for now. * Serum sodium is also elevated. Patient advised to increase her by mouth fluid intake. * Hyperkalemia has been corrected with Kayexalate * Discussed with patient and her daughter at bedside Subjective Date of service: 12/14/16 Interval history: Patient feels better today. Shortness of breath is improving. Denies any nausea or vomiting Objective - Vital Signs Vital signs: Vital Signs - 12hr 12/14/16 12/14/16 12/14/16 00:52 05:17 07:00 Temperature 97.6 F 97.6 F Pulse Rate 72 Pulse Rate [ Anterior Bilateral Throughout] Pulse Rate [ 74 74 From Monitor] Pulse Rate [ Left] Respiratory 18 20 Rate Respiratory Rate [Anterior Bilateral Throughout] Blood Pressure 127/74 127/73 [Left Arm] O2 Sat by Pulse 97 97 Oximetry 12/14/16 12/14/16 12/14/16 08:00 08:22 08:36 Temperature 97.8 F Pulse Rate Pulse Rate [ 79 76 Anterior Bilateral Throughout] Pulse Rate [ From Monitor] Pulse Rate [ 76 Left] Respiratory 18 Rate Respiratory 18 22 Rate [Anterior Bilateral Throughout] Blood Pressure 139/83 [Left Arm] O2 Sat by Pulse 97 86 Oximetry 12/14/16 12:00 Temperature 97.8 F Pulse Rate Pulse Rate [ Anterior Bilateral Throughout] Pulse Rate [ 74 From Monitor] Pulse Rate [ Left] Respiratory 18 Rate Respiratory Rate [Anterior Bilateral Throughout] Blood Pressure 133/79 [Left Arm] O2 Sat by Pulse Oximetry - General Appearance General appearance: chronically ill, frail, other (pleasant elderly female) EENT: PERRL, mucous membranes moist Neck: no JVD, no thyromegaly Respiratory: Present: Rales (fine basal crackles) Cardiology: regular, normal heart rate, S1S2, no murmurs Gastrointestinal: normal, normoactive bowel sounds - Lab 12/13/16 05:57 12/14/16 06:47 Most recent lab results Calcium 8.6 mg/dL (8.4-10.2) 12/14/16 06:47 Magnesium 1.9 mg/dL (1.7-2.3) 12/14/16 06:47
--- NOTE | 2016-12-14 15:42 | Progress Note ---
Assessment and Plan 86 y/o female with acute on chronic respiratory failure most likely multifactorial from volume overload and sarcoid exacerbation. 1. Continue prednisone 30 daily. Would allow her outside lung doc to taper in follow up. 2. Unable to continue diuresis, secondary to bump in Cr. Renal has held. 3. Can order nebs for patient at home but would check with family first. Thank you for this consult. Will continue to follow along with you. Subjective Date of service: 12/14/16 Interval history: No acute events. Breathing is stable Objective Vital Signs - 12hr 12/14/16 12/14/16 12/14/16 05:17 07:00 08:00 Temperature 97.6 F 97.8 F Pulse Rate 72 Pulse Rate [ Anterior Bilateral Throughout] Pulse Rate [ 74 From Monitor] Pulse Rate [ 76 Left] Respiratory 20 18 Rate Respiratory Rate [Anterior Bilateral Throughout] Blood Pressure 127/73 139/83 [Left Arm] O2 Sat by Pulse 97 97 Oximetry 12/14/16 12/14/16 12/14/16 08:22 08:36 12:00 Temperature 97.8 F Pulse Rate Pulse Rate [ 79 76 Anterior Bilateral Throughout] Pulse Rate [ 74 From Monitor] Pulse Rate [ Left] Respiratory 18 Rate Respiratory 18 22 Rate [Anterior Bilateral Throughout] Blood Pressure 133/79 [Left Arm] O2 Sat by Pulse 86 Oximetry Constitutional: no acute distress, alert, other (thin and cachetic) Eyes: non-icteric ENT: oropharynx moist Effort: normal Ascultation: Bilateral: diminished breath sounds Percussion: Bilateral: not dull Tactile fremitus: Bilateral: normal Cardiovascular: regular rate and rhythm Gastrointestinal: normoactive bowel sounds CBC and BMP: 12/13/16 05:57 12/14/16 06:47 ABG, PT/INR, D-dimer: PT/INR, D-dimer D-Dimer 1349.66 ng/mlDDU (0-234) H 12/12/16 00:16 Abnormal lab findings: Abnormal Labs 12/12/16 12/12/16 12/12/16 00:16 00:16 07:10 RBC 3.47 L RDW 15.6 H [place] % (Auto) 11.2 H Lymph # 0.9 L Seg Neutrophils % 73.6 H Seg Neuts % (Manual) Lymphocytes % (Manual) Lymphocytes # (Manual) D-Dimer 1349.66 H Sodium Potassium BUN Creatinine Glucose Total Creatine Kinase 22 L CK-MB (CK-2) Rel Index 7.7 H 12/12/16 12/12/16 12/13/16 07:10 07:10 05:57 RBC RDW 15.8 H [place] % (Auto) Lymph # Seg Neutrophils % Seg Neuts % (Manual) 82.0 H Lymphocytes % (Manual) 6.0 L Lymphocytes # (Manual) 0.3 L D-Dimer Sodium Potassium BUN 48 H Creatinine 2.6 H Glucose 109 H Total Creatine Kinase 20 L CK-MB (CK-2) Rel Index 8.5 H 12/13/16 12/14/16 05:57 06:47 RBC RDW [place] % (Auto) Lymph # Seg Neutrophils % Seg Neuts % (Manual) Lymphocytes % (Manual) Lymphocytes # (Manual) D-Dimer Sodium 146 H Potassium 5.5 H BUN 53 H 58 H Creatinine 2.7 H 3.1 H Glucose 151 H Total Creatine Kinase CK-MB (CK-2) Rel Index
--- NOTE | 2016-12-14 17:46 | Progress Note ---
Assessment and Plan Assessment and plan: --Acute respiratory distress Possible exacerbation of sarcoidosis Continue oxygen, nebulizers, Pulmicort Supportive care, steroids Pulmonary following --Elevated D dimers Negative PE or DVT --Hyperkalemia, with Kayexalate Closely monitor potassium levels --History of hypothyroidism, stable on Synthroid --Hypertension moderate control Continue current management and when necessary hydralazine --chronic kidney disease stage IV Worsening renal function , avoid nephrotoxic medication Nephrology following ,input-output monitoring --DVT prophylaxis With heparin DC Kaba, ambulate as tolerated --CODE STATUS; full code DC planning. Case management Plan of care discussed with the patient as well as the family member at the bedside History Interval history: Patient seen and evaluated in her room medical records reviewed Patient is very cheerful no new complaints, on nasal cannula oxygen Denies chest pain or shortness of breath On nebulizers oxygen and steroids Alert awake oriented 3 not in acute distress Hospitalist Physical - Constitutional Vitals: Temp Pulse Resp BP Pulse Ox 98.2 F 77 18 139/85 94 12/14/16 16:00 12/14/16 16:00 12/14/16 16:00 12/14/16 16:00 12/14/16 16:00 General appearance: Present: no acute distress, cachectic, other (thin built) - EENT Eyes: Present: PERRL, EOM intact - Neck Neck: Present: supple, normal ROM - Respiratory Respiratory effort: normal Respiratory: bilateral: diminished, negative: rales, rhonchi, wheezing - Cardiovascular Rhythm: regular Heart Sounds: Present: S1 & S2 - Extremities Extremities: no ischemia, pulses intact, pulses symmetrical Extremity abnormal: edema Peripheral Pulses: within normal limits - Abdominal General gastrointestinal: soft, non-tender, non-distended, normal bowel sounds - Integumentary Integumentary: Present: clear - Psychiatric Psychiatric: appropriate mood/affect, cooperative - Neurologic Neurologic: CNII-XII intact, moves all extremities Results - Labs CBC & Chem 7: 12/13/16 05:57 12/14/16 06:47 Labs: Laboratory Last Values WBC 5.4 K/mm3 (4.5-11.0) 12/13/16 05:57 RBC 3.67 M/mm3 (3.65-5.03) 12/13/16 05:57 Hgb 10.7 gm/dl (10.1-14.3) 12/13/16 05:57 Hct 34.0 % (30.3-42.9) 12/13/16 05:57 MCV 93 fl (79-97) 12/13/16 05:57 MCH 29 pg (28-32) 12/13/16 05:57 MCHC 32 % (30-34) 12/13/16 05:57 RDW 15.8 % (13.2-15.2) H 12/13/16 05:57 Plt Count 162 K/mm3 (140-440) 12/13/16 05:57 Lymph % (Auto) 14.0 % (13.4-35.0) 12/12/16 07:10 [place] % (Auto) 11.2 % (0.0-7.3) H 12/12/16 07:10 Eos % (Auto) 0.8 % (0.0-4.3) 12/12/16 07:10 Baso % (Auto) 0.4 % (0.0-1.8) 12/12/16 07:10 Lymph # 0.9 K/mm3 (1.2-5.4) L 12/12/16 07:10 [place] # 0.7 K/mm3 (0.0-0.8) 12/12/16 07:10 Eos # 0.1 K/mm3 (0.0-0.4) 12/12/16 07:10 Baso # 0.0 K/mm3 (0.0-0.1) 12/12/16 07:10 Add Manual Diff Complete 12/13/16 05:57 Total Counted 100 12/13/16 05:57 Seg Neutrophils % 73.6 % (40.0-70.0) H 12/12/16 07:10 Seg Neuts % (Manual) 82.0 % (40.0-70.0) H 12/13/16 05:57 Band Neutrophils % 11.0 % 12/13/16 05:57 Lymphocytes % (Manual) 6.0 % (13.4-35.0) L 12/13/16 05:57 Reactive Lymphs % (Man) 0 % 12/13/16 05:57 Monocytes % (Manual) 1.0 % (0.0-7.3) 12/13/16 05:57 Eosinophils % (Manual) 0 % (0.0-4.3) 12/13/16 05:57 Basophils % (Manual) 0 % (0.0-1.8) 12/13/16 05:57 Metamyelocytes % 0 % 12/13/16 05:57 Myelocytes % 0 % 12/13/16 05:57 Promyelocytes % 0 % 12/13/16 05:57 Blast Cells % 0 % 12/13/16 05:57 Nucleated RBC % Not Reportable 12/13/16 05:57 Seg Neutrophils # 4.8 K/mm3 (1.8-7.7) 12/12/16 07:10 Seg Neutrophils # Man 4.4 K/mm3 (1.8-7.7) 12/13/16 05:57 Band Neutrophils # 0.6 K/mm3 12/13/16 05:57 Lymphocytes # (Manual) 0.3 K/mm3 (1.2-5.4) L 12/13/16 05:57 Abs React Lymphs (Man) 0.0 K/mm3 12/13/16 05:57 Monocytes # (Manual) 0.1 K/mm3 (0.0-0.8) 12/13/16 05:57 Eosinophils # (Manual) 0.0 K/mm3 (0.0-0.4) 12/13/16 05:57 Basophils # (Manual) 0.0 K/mm3 (0.0-0.1) 12/13/16 05:57 Metamyelocytes # 0.0 K/mm3 12/13/16 05:57 Myelocytes # 0.0 K/mm3 12/13/16 05:57 Promyelocytes # 0.0 K/mm3 12/13/16 05:57 Blast Cells # 0.0 K/mm3 12/13/16 05:57 WBC Morphology Not Reportable 12/13/16 05:57 Hypersegmented Neuts Not Reportable 12/13/16 05:57 Hyposegmented Neuts Not Reportable 12/13/16 05:57 Hypogranular Neuts Not Reportable 12/13/16 05:57 Smudge Cells Not Reportable 12/13/16 05:57 Toxic Granulation Not Reportable 12/13/16 05:57 Toxic Vacuolation Not Reportable 12/13/16 05:57 Dohle Bodies Not Reportable 12/13/16 05:57 Pelger-Huet Anomaly Not Reportable 12/13/16 05:57 Sravan Rods Not Reportable 12/13/16 05:57 Platelet Estimate Appears normal 12/13/16 05:57 Clumped Platelets Not Reportable 12/13/16 05:57 Plt Clumps, EDTA Not Reportable 12/13/16 05:57 Large Platelets Not Reportable 12/13/16 05:57 Giant Platelets Not Reportable 12/13/16 05:57 Platelet Satelliting Not Reportable 12/13/16 05:57 Plt Morphology Comment Not Reportable 12/13/16 05:57 RBC Morphology Not Reportable 12/13/16 05:57 Dimorphic RBCs Not Reportable 12/13/16 05:57 Polychromasia Not Reportable 12/13/16 05:57 Hypochromasia Not Reportable 12/13/16 05:57 Poikilocytosis Not Reportable 12/13/16 05:57 Anisocytosis 1+ 12/13/16 05:57 Microcytosis Not Reportable 12/13/16 05:57 Macrocytosis Not Reportable 12/13/16 05:57 Spherocytes Not Reportable 12/13/16 05:57 Pappenheimer Bodies Not Reportable 12/13/16 05:57 Sickle Cells Not Reportable 12/13/16 05:57 Target Cells Not Reportable 12/13/16 05:57 Tear Drop Cells Not Reportable 12/13/16 05:57 Ovalocytes Not Reportable 12/13/16 05:57 Helmet Cells Not Reportable 12/13/16 05:57 Delaney-Conger Bodies Not Reportable 12/13/16 05:57 [place] Rings Not Reportable 12/13/16 05:57 Consuelo Cells Not Reportable 12/13/16 05:57 Bite Cells Not Reportable 12/13/16 05:57 Crenated Cell Not Reportable 12/13/16 05:57 Elliptocytes Not Reportable 12/13/16 05:57 Acanthocytes (Spur) Not Reportable 12/13/16 05:57 Rouleaux Not Reportable 12/13/16 05:57 Hemoglobin C Crystals Not Reportable 12/13/16 05:57 Schistocytes Not Reportable 12/13/16 05:57 Malaria parasites Not Reportable 12/13/16 05:57 Eliot Bodies Not Reportable 12/13/16 05:57 Hem Pathologist Commnt No 12/13/16 05:57 D-Dimer 1349.66 ng/mlDDU (0-234) H 12/12/16 00:16 Sodium 146 mmol/L (137-145) H 12/14/16 06:47 Potassium 4.3 mmol/L (3.6-5.0) D 12/14/16 06:47 Chloride 105.9 mmol/L (98-107) 12/14/16 06:47 Carbon Dioxide 24 mmol/L (22-30) 12/14/16 06:47 Anion Gap 20 mmol/L 12/14/16 06:47 BUN 58 mg/dL (7-17) H 12/14/16 06:47 Creatinine 3.1 mg/dL (0.7-1.2) H 12/14/16 06:47 Estimated GFR 14 ml/min 12/14/16 06:47 BUN/Creatinine Ratio 18.70 % 12/14/16 06:47 Glucose 93 mg/dL (65-100) 12/14/16 06:47 Calcium 8.6 mg/dL (8.4-10.2) 12/14/16 06:47 Magnesium 1.9 mg/dL (1.7-2.3) 12/14/16 06:47 Total Creatine Kinase 20 units/L (30-135) L 12/12/16 07:10 CK-MB (CK-2) 1.7 ng/mL (0.0-4.0) 12/12/16 07:10 CK-MB (CK-2) Rel Index 8.5 (0-4) H 12/12/16 07:10 Troponin T < 0.010 ng/mL (0.00-0.029) 12/12/16 07:10 NT-Pro-B Natriuret Pep > 12181 pg/mL (0-900) H 12/11/16 18:32
[2016-12-14] MEDS: SINGULAIR PO SCH (22:07)
[2016-12-15] MEDS: SYNTHROID PO SCH (05:41)
[2016-12-15] MEDS: BROVANA NEBU IH SCH (07:35)
[2016-12-15] MEDS: PULMICORT IH SCH (07:35)
[2016-12-15 07:45] LABS: BUN/Creatinine Ratio 24.4; Calcium 8.3 mg/dL (8.4-10.2); Chloride 104.3 mmol/L (98-107); Potassium 3.5 mmol/L (3.6-5.0)
--- NOTE | 2016-12-15 09:39 | Progress Note ---
Assessment and Plan 86 y/o female with acute on chronic respiratory failure most likely multifactorial from volume overload and sarcoid exacerbation. 1. Continue prednisone 30 daily. Would allow her outside lung doc to taper in follow up. 2. Unable to continue diuresis, secondary to bump in Cr. Renal has held. 3. Can order nebs for patient at home but would check with family first. 4. no objection to discharge today. has follow up already scheduled Subjective Date of service: 12/15/16 Interval history: feels good, ready to go home. Objective Vital Signs - 12hr 12/14/16 12/15/16 12/15/16 22:07 00:17 00:25 Temperature 98.7 F Pulse Rate 91 H 86 Pulse Rate [ Anterior Bilateral Throughout] Pulse Rate [ 80 Left] Respiratory 20 Rate Respiratory Rate [Anterior Bilateral Throughout] Blood Pressure 160/75 Blood Pressure 156/82 [Left Arm] O2 Sat by Pulse 96 Oximetry 12/15/16 12/15/16 12/15/16 04:20 07:35 07:56 Temperature 98.3 F Pulse Rate Pulse Rate [ 77 67 Anterior Bilateral Throughout] Pulse Rate [ 77 Left] Respiratory 20 Rate Respiratory 20 20 Rate [Anterior Bilateral Throughout] Blood Pressure Blood Pressure 151/74 [Left Arm] O2 Sat by Pulse 98 95 Oximetry 12/15/16 08:20 Temperature 97.6 F Pulse Rate Pulse Rate [ Anterior Bilateral Throughout] Pulse Rate [ 77 Left] Respiratory 20 Rate Respiratory Rate [Anterior Bilateral Throughout] Blood Pressure Blood Pressure 158/77 [Left Arm] O2 Sat by Pulse 95 Oximetry Constitutional: no acute distress, alert, other (thin and cachetic) Eyes: non-icteric ENT: oropharynx moist Effort: normal Ascultation: Bilateral: diminished breath sounds Percussion: Bilateral: not dull Tactile fremitus: Bilateral: normal Cardiovascular: regular rate and rhythm Gastrointestinal: normoactive bowel sounds CBC and BMP: 12/13/16 05:57 12/15/16 06:46 ABG, PT/INR, D-dimer: PT/INR, D-dimer D-Dimer 1349.66 ng/mlDDU (0-234) H 12/12/16 00:16 Abnormal lab findings: Abnormal Labs 12/12/16 12/12/16 12/12/16 00:16 00:16 07:10 RBC 3.47 L RDW 15.6 H [place] % (Auto) 11.2 H Lymph # 0.9 L Seg Neutrophils % 73.6 H Seg Neuts % (Manual) Lymphocytes % (Manual) Lymphocytes # (Manual) D-Dimer 1349.66 H Sodium Potassium BUN Creatinine Glucose Calcium Total Creatine Kinase 22 L CK-MB (CK-2) Rel Index 7.7 H 12/12/16 12/12/16 12/13/16 07:10 07:10 05:57 RBC RDW 15.8 H [place] % (Auto) Lymph # Seg Neutrophils % Seg Neuts % (Manual) 82.0 H Lymphocytes % (Manual) 6.0 L Lymphocytes # (Manual) 0.3 L D-Dimer Sodium Potassium BUN 48 H Creatinine 2.6 H Glucose 109 H Calcium Total Creatine Kinase 20 L CK-MB (CK-2) Rel Index 8.5 H 12/13/16 12/14/16 12/15/16 05:57 06:47 06:46 RBC RDW [place] % (Auto) Lymph # Seg Neutrophils % Seg Neuts % (Manual) Lymphocytes % (Manual) Lymphocytes # (Manual) D-Dimer Sodium 146 H Potassium 5.5 H 3.5 L BUN 53 H 58 H 61 H Creatinine 2.7 H 3.1 H 2.5 H Glucose 151 H 137 H Calcium 8.3 L Total Creatine Kinase CK-MB (CK-2) Rel Index
[2016-12-15] MEDS: DELTASONE PO SCH (09:54)
[2016-12-15] MEDS: COREG PO SCH (09:54)
[2016-12-15] MEDS: CLARITIN PO SCH (09:54)
[2016-12-15] MEDS: LOVENOX SUB-Q SCH (09:55)
--- NOTE | 2016-12-15 10:51 | Progress Note ---
Assessment and Plan Impression: * Stage IV chronic kidney disease - renal function at baseline * Acute hypoxic respiratory failure - likely secondary to pulmonary sarcoidosis/ bronchiectasis * Hyperkalemia- resolved * Hypertension Plan: * CT chest findings noted. Patient currently on start Pulmicort 0.5 BID, Brovana 25mcg BID and Prednisone 30mg daily per pulmonary recommendations . * Diuresis prn * Resume home medications * Restrict dietary K intake * Strict I/O * Avoid potential nephrotoxins * Her serum creatinine is better and back to baseline. * Serum sodium is also better * okay to resume oral diuretic as needed. * Hyperkalemia has been corrected with Kayexalate * Discussed with patient and her daughter at bedside Subjective Date of service: 12/15/16 Interval history: Patient feels better today. Shortness of breath is improving. Denies any nausea or vomiting Objective - Vital Signs Vital signs: Vital Signs - 12hr 12/15/16 12/15/16 12/15/16 00:17 00:25 04:20 Temperature 98.7 F 98.3 F Pulse Rate 86 Pulse Rate [ Anterior Bilateral Throughout] Pulse Rate [ 80 77 Left] Respiratory 20 20 Rate Respiratory Rate [Anterior Bilateral Throughout] Blood Pressure Blood Pressure 156/82 151/74 [Left Arm] O2 Sat by Pulse 96 98 Oximetry 12/15/16 12/15/16 12/15/16 07:35 07:56 08:20 Temperature 97.6 F Pulse Rate Pulse Rate [ 77 67 Anterior Bilateral Throughout] Pulse Rate [ 77 Left] Respiratory 20 Rate Respiratory 20 20 Rate [Anterior Bilateral Throughout] Blood Pressure Blood Pressure 158/77 [Left Arm] O2 Sat by Pulse 95 95 Oximetry 12/15/16 09:54 Temperature Pulse Rate 88 Pulse Rate [ Anterior Bilateral Throughout] Pulse Rate [ Left] Respiratory Rate Respiratory Rate [Anterior Bilateral Throughout] Blood Pressure 158/77 Blood Pressure [Left Arm] O2 Sat by Pulse Oximetry - General Appearance General appearance: well-developed, well-nourished, appears stated age EENT: PERRL, mucous membranes moist Neck: no JVD, no thyromegaly Respiratory: Present: Rales (fine of crackles) Cardiology: regular, normal heart rate, S1S2, no murmurs Gastrointestinal: normal, normoactive bowel sounds Integumentary: no rash, other (no edema) - Lab 12/13/16 05:57 12/15/16 06:46 Most recent lab results Calcium 8.3 mg/dL (8.4-10.2) L 12/15/16 06:46 Magnesium 1.9 mg/dL (1.7-2.3) 12/14/16 06:47
--- NOTE | 2016-12-15 11:14 | Discharge Summary ---
Providers - Providers Date of Admission: 12/11/16 23:47 Date of discharge: 12/15/16 Attending physician: REGINA ANGELES 12/12/16 17:02 Consult to Physician [CONS] Routine Consulting Provider: ZEB HECTOR Reason For Exam: Sarcoidosis, Bronchiectasis,difficulty breathing Place consult to:: ruslan Notified:: n Was contact made?: No Comment:: put on Dr List Primary care physician: TASH GALINDO Hospitalization Condition: Stable Disposition: DISCHARGED TO HOME OR SELFCARE Core Measure Documentation - Palliative Care Palliative Care/ Comfort Measures: Not Applicable - Core Measures Any of the following diagnoses?: none Exam - Constitutional Vitals: Temp Pulse Resp BP Pulse Ox 97.6 F 88 20 158/77 94 12/15/16 08:20 12/15/16 09:54 12/15/16 08:20 12/15/16 09:54 12/15/16 10:57 General appearance: Present: no acute distress, other (thin built) - EENT Eyes: Present: PERRL, EOM intact - Neck Neck: Present: supple, normal ROM - Respiratory Respiratory effort: normal Respiratory: bilateral: diminished, negative: rales, rhonchi, wheezing - Cardiovascular Rhythm: regular Heart Sounds: Present: S1 & S2 - Extremities Extremities: no ischemia, pulses intact, pulses symmetrical Peripheral Pulses: within normal limits - Abdominal General gastrointestinal: Present: soft, non-tender, non-distended, normal bowel sounds - Integumentary Integumentary: Present: clear, warm - Musculoskeletal Musculoskeletal: strength equal bilaterally - Psychiatric Psychiatric: appropriate mood/affect, cooperative - Neurologic Neurologic: CNII-XII intact, moves all extremities Plan Activity: advance as tolerated Diet: renal Additional Instructions: f/u PMD 3-4 days. f/u Private Car Cleaning Supervisor 1 week. your Car Cleaning Supervisor will adjust Steroid dose. If you have chest pain or shortness of breath,contact MD or go to ER. Room air o2 sat 94-95 %, no indication for home o2 Follow up with: TASH GALINDO MD [Primary Care Provider] - 7 Days Prescriptions: predniSONE [Deltasone] 30 mg PO QDAY #10 tablet
[2016-12-15] MEDS ORDERED: K-DUR PO ONE (11:30)
[2016-12-15 12:34] VITALS: BP 164/82
== END 2016-12-15 16:33 | disposition home or self-care (01) | DRG 196 ==
LOC: ED 17:18 → 4A 23:47 → CC1 12-12 02:49 → 4A 12-12 03:49
PROVIDERS: ADMIT Internal Medicine; ATTEND Internal Medicine
DX: D86.89 Sarcoidosis of other sites (principal); J96.21 Acute and chronic respiratory failure with hypoxia; I12.0 Hypertensive chronic kidney disease with stage 5 chronic kidney disease or end stage renal disease; N18.5 Chronic kidney disease, stage 5; E87.70 Fluid overload, unspecified; J47.9 Bronchiectasis, uncomplicated; D86.9 Sarcoidosis, unspecified; E87.5 Hyperkalemia; K21.9 Gastro-esophageal reflux disease without esophagitis; M19.90 Unspecified osteoarthritis, unspecified site; Z90.49 Acquired absence of other specified parts of digestive tract; Z88.2 Allergy status to sulfonamides; Z90.710 Acquired absence of both cervix and uterus; Z82.49 Family history of ischemic heart disease and other diseases of the circulatory system
CPT/HCPCS: 36415; 71020; 71250; 78582; 80048; 82164; 82550; 82553; 83735; 83880; 84484; 85007; 85025; 85379; 93005; 93010; 94640; 94760; 96374; A9540; A9558; J1650; J1940; J7512

== ENCOUNTER 2017-01-05 15:01 | Inpatient (IN) | payer MEDICARE ==
[2017-01-05 16:17] LABS: Hematocrit 39.5 % (30.3-42.9); Hemoglobin 12.3 gm/dl (10.1-14.3); Mean Corpuscular HGB Conc 31 % (30-34); Mean Corpuscular Hemoglobin 29 pg (28-32); Mean Corpuscular Volume 94 fl (79-97); Platelet Count 117 K/mm3 (140-440); Red Blood Count 4.23 M/mm3 (3.65-5.03); Red Cell Distribution Width 17.1 % (13.2-15.2); White Blood Count 14.6 K/mm3 (4.5-11.0)
[2017-01-05 16:37] LABS: Albumin 3.1 g/dL (3.9-5); Albumin/Globulin Ratio 1.1 %; BUN/Creatinine Ratio 36.66; Bilirubin,Total 0.5 mg/dL (0.1-1.2); Calcium 9.1 mg/dL (8.4-10.2); Chloride 105.3 mmol/L (98-107); Total Protein 5.8 g/dL (6.3-8.2)
[2017-01-05 17:32] LABS: Basophils % (Manual) 0 % (0.0-1.8); Blastocytes % (Manual) 0 %; Eosinophils % (Manual) 0 % (0.0-4.3)
[2017-01-05 17:33] LABS: Platelet Estimate Consistent w Auto
[2017-01-05 17:34] LABS: Anisocytosis 1+; Diff Status Complete
--- NOTE | 2017-01-05 19:42 | History and Physical Report ---
History of Present Illness Date of examination: 01/05/17 Date of admission: 01/05/17 15:41 History of present illness: pt was seen and examined--Notes dictated Medications and Allergies Allergies Allergy/AdvReac Type Severity Reaction Status Date / Time Sulfa (Sulfonamide Allergy Hives Verified 12/11/16 17:30 Antibiotics) Home Medications Medication Instructions Recorded Confirmed Last Taken Type ALBUTEROL Inhaler [ProAir HFA 2 puff IH QID PRN 12/12/16 01/05/17 2 Days Ago History Inhaler] Carvedilol [Coreg] 25 mg PO BID 12/12/16 01/05/17 1 Day Ago History Cetirizine HCl [ZyrTEC] 10 mg PO DAILY 12/12/16 12/12/16 12/11/16 History Fluticasone/Salmeterol [Advair 1 dose INNOSTRIL DAILY 12/12/16 12/12/16 History 250-50 Diskus] Levothyroxine [Synthroid] 100 mcg PO QAM 12/12/16 01/05/17 1 Day Ago History Montelukast [Singulair] 10 mg PO QPM 12/12/16 01/05/17 1 Day Ago History Multivit-Min/FA/Lycopen/Lutein 1 each PO DAILY 12/12/16 01/05/17 1 Day Ago History [Centrum Silver Tablet] Vit C/E/Zn/Coppr/Lutein/Zeaxan 1 each PO DAILY 12/12/16 01/05/17 1 Day Ago History [Preservision Areds 2 Softgel] predniSONE [Deltasone] 30 mg PO QDAY #10 tablet 12/15/16 Unknown Rx Active Meds: Active Medications Furosemide (Lasix) 40 mg IV Q12HR ALEK Exam - Constitutional Vitals: Temp Pulse Resp BP Pulse Ox 98.0 F 88 20 158/82 95 01/05/17 18:30 01/05/17 18:30 01/05/17 18:30 01/05/17 18:30 01/05/17 18:30 Results - Labs CBC & Chem 7: 01/05/17 16:00 01/05/17 16:00 Labs: Abnormal lab results 01/05/17 01/05/17 Range/Units 16:00 16:00 WBC 14.6 H (4.5-11.0) K/mm3 RDW 17.1 H (13.2-15.2) % Plt Count 117 L (140-440) K/mm3 Seg Neuts % (Manual) 95.0 H (40.0-70.0) % Lymphocytes % (Manual) 2.0 L (13.4-35.0) % Seg Neutrophils # Man 13.9 H (1.8-7.7) K/mm3 Lymphocytes # (Manual) 0.3 L (1.2-5.4) K/mm3 BUN 88 H (7-17) mg/dL Creatinine 2.4 H (0.7-1.2) mg/dL Glucose 115 H (65-100) mg/dL Total Protein 5.8 L (6.3-8.2) g/dL Albumin 3.1 L (3.9-5) g/dL
[2017-01-05] MEDS ORDERED: TYLENOL PO PRN (20:00)
[2017-01-05] MEDS: ROCEPHIN/NS 1 GM/50 ML 1 GM/50 ML BAG IV SCH (20:55)
[2017-01-05] MEDS: LASIX IV SCH ×2 (20:59→21:11)
[2017-01-05] MEDS: COREG PO SCH (21:03)
[2017-01-05] MEDS: SINGULAIR PO SCH (21:03)
--- NOTE | 2017-01-05 21:06 | History and Physical Report ---
HISTORY OF PRESENT ILLNESS: This 86-year-old female with a history of chronic kidney disease, sarcoidosis, hypertension, cardiomyopathy, was seen in the office came in with increasing shortness of breath and swelling of the legs with blisters over her feet with generalized weakness. The patient is unable to lay down due to shortness of breath and could not take even few steps without getting short of breath. She had blood test done on 12/27/2016 which showed BUN of 84, creatinine of 2.77, potassium of 6.2 for which she was given Kayexalate. Repeat potassium was 5.6 on 12/31/2016, serum creatinine remained at 2.73, BUN 85. The patient is followed by vice president of software development, and was reported to have left ventricular ejection fraction of 20%. She has history of sarcoidosis, followed by stitchdown toe former in [place]. The patient had AV fistula by Dr. Marie few years back, which was never used and has not been functioning. She was recently admitted to [facility] on 12/11/2016, for shortness of breath, seen by Dr. Ramsay on pulmonary evaluation. Medical records were reviewed. Chest x-ray at that time revealed perihilar infiltrate and small pleural effusion. VQ scan consistent with COPD and low probability for PE. CT scan without contrast showed chronic area of scarring and bronchiectasis involving bilateral perihilar region, borderline mildly enlarged intrathoracic lymph nodes and chronic sarcoidosis. She was discharged on 12/15/2016. On 12/15/2016, BUN was 61, creatinine was 2.5. The patient was recently seen by stitchdown toe former at [place]. She is on tapering doses of prednisone. PAST MEDICAL HISTORY: Status post thyroid goiter surgery, cholecystectomy, hysterectomy and appendectomy, history of chronic kidney disease, hypertension, sarcoidosis and cardiomyopathy. PERSONAL HISTORY: Denies smoking, alcohol, or drug abuse. FAMILY HISTORY: No family history of kidney failure. ALLERGIES: SULFA. HOME MEDICATIONS: Reviewed as noted in the chart. REVIEW OF SYSTEMS: Complains of generalized weakness, appetite is fair. Denies nausea, vomiting, or diarrhea, has been losing weight. Complains of shortness of breath even with minimum exertion. Denies abdomen pain or GI bleeding. Complains of increased swelling of the legs up to the thighs, for the past few days, it has been getting worse and blisters coming up on the feet. Denies dysuria or hematuria. Other review of systems reviewed and negative. PHYSICAL EXAMINATION: GENERAL: The patient is alert, oriented, thin built, chronically ill-looking, frail looking female. VITAL SIGNS: Blood pressure 158/82, pulse 88, afebrile. HEENT: Head is normocephalic. Eyes: Pupils reactive. Conjunctivae pink. Oral mucosa and tongue are dry. Lips noncyanotic. NECK: JVD 3 cm. LUNGS: Diminishing breath sounds in bases. HEART: S1, S2 regular. A 2/6 systolic murmur along the left sternal border. ABDOMEN: Soft, bowel sounds present, nontender. No liver or spleen palpable. EXTREMITIES: 3 to 4+ edema with blisters coming up on the dorsum of the feet, able to move all extremities. LABORATORY DATA: Sodium 144, potassium 5.0, chloride 105, CO2 23, BUN 88, creatinine 2.4, glucose 115, albumin 3.1. WBC 14.6, hemoglobin 12.3, hematocrit 39.5, platelets 117, 000. ASSESSMENT AND PLAN: 1. Acute on chronic systolic heart failure. The patient's left ventricular ejection fraction was 20% per her vice president of software development. 2. Peripheral edema. 3. Acute on chronic kidney disease, most likely prerenal with underlying chronic kidney disease or chronic kidney disease progression. 4. Hypertension. 5. Sarcoidosis. 6. Leukocytosis, the patient is on steroids which may be contributing to it. Rule out infection. 7. Deconditioning. 8. Mild thrombocytopenia. 9. Cardiomyopathy. IV diuretics as ordered. Monitor intake and output and daily weight. Adjust medications per renal function. Empirically place on antibiotics. Check chest x-ray and echocardiogram. We will get Cardiology consultation. If no improvement, the patient may need renal replacement therapy with dialysis. Discussed with the patient and the patient's granddaughter about the above. JOB# [id number] MENA/GIA AGUSTIN
[2017-01-06 05:56] LABS: Anion Gap 20 mmol/L; BUN/Creatinine Ratio 32.96; Blood Urea Nitrogen 89 mg/dL (7-17); Calcium 8.7 mg/dL (8.4-10.2); Carbon Dioxide 25 mmol/L (22-30); Chloride 107.2 mmol/L (98-107); Glucose 127 mg/dL (65-100); Sodium 147 mmol/L (137-145)
[2017-01-06] MEDS ORDERED: SYNTHROID PO SCH ×2 (06:00→10:17)
--- NOTE | 2017-01-06 07:55 | XRay Report ---
CHEST XRAY, 2 VIEWS: History: Dyspnea. Findings: There is mild diffuse interstitial coarsening. The lungs are hyperexpanded but clear. No infiltrate, pleural fluid or pneumothorax is detected. Mild cardiomegaly, mild vascular congestion and trace right pleural effusion are identified. No evidence for pneumonia or pneumothorax. Linear scarring or atelectasis in the right upper lobe is noted. IMPRESSION: COPD with superimposed mild CHF.
--- NOTE | 2017-01-06 08:55 | Progress Note ---
Assessment and Plan - Patient Problems (1) Acute on chronic systolic HF (heart failure) Current Visit: Yes Status: Acute Plan to address problem: Continue present diuretics. Echocardiogram- LVEF-15-20%, mod mitral stenosis, severe pul HTN. Discussed with fruit harvester-. Prognosis poor. Discussed with pt and grand daughter about the Echocardiogram findings and poor prognosis. Given her age and multiple co morbid conditions-discussed in detail about the treatment options vs supportive care. Pt does not want any life prolonging treatments, requests DNR. Pt is ok for [facility] and home PT. May consider home hospice (2) Acute kidney injury superimposed on CKD Current Visit: Yes Status: Acute Plan to address problem: cardio renal syndrome. Scr up today, also noted rising Sodium level. May decrease diuretic dose. Adjust meds per renal function. (3) Acute and chronic respiratory failure Current Visit: Yes Status: Acute Qualifiers: Respiratory failure complication: R Plan to address problem: check oxygen sat on room air, may need home oxygen (4) Hypernatremia Current Visit: Yes Status: Acute Plan to address problem: increase free water intake (5) Physical deconditioning Current Visit: Yes Status: Chronic (6) HTN (hypertension) Current Visit: Yes Status: Chronic Qualifiers: Hypertension type: H (7) COPD (chronic obstructive pulmonary disease) Current Visit: No Status: Acute Qualifiers: COPD type: C Chronic bronchitis type: C Emphysema type: E (8) Hx of sarcoidosis Current Visit: No Status: Chronic (9) Leg edema Current Visit: No Status: Acute Qualifiers: Laterality: bilateral Qualified Code(s): R60.0 - Localized edema (10) Weight loss Current Visit: Yes Status: Chronic (11) Hypothyroidism Current Visit: Yes Status: Acute Qualifiers: Hypothyroidism type: H Plan to address problem: TSH-low-- decrease levothyroxine dose Subjective Date of service: 01/06/17 Interval history: pt is alert, feels weak Objective - Vital Signs Vital signs: Vital Signs - 12hr 01/06/17 01/06/17 00:45 05:08 Temperature 98.5 F 97.8 F Pulse Rate [ 74 78 Left Radial] Respiratory 18 18 Rate Blood Pressure 151/94 144/86 [Left Arm] O2 Sat by Pulse 95 99 Oximetry - General Appearance General appearance: chronically ill, other (frail, emaciated) EENT: mucous membranes dry Neck: no JVD Respiratory: Present: Decreased Breath Sounds Cardiology: regular, systolic murmur Gastrointestinal: normoactive bowel sounds Integumentary: other (dry skin) Neurologic: alert and oriented x3 Musculoskeletal: other (1+ edema) Psychiatric: mood/affect appropriate, cooperative - Lab 01/05/17 16:00 01/06/17 04:38 Most recent lab results Calcium 8.7 mg/dL (8.4-10.2) 01/06/17 04:38 Urine Creatinine 16.8 mg/dL (0.1-20.0) 01/05/17 00:00 Urine Sodium 121 mEq/L 01/05/17 00:00
--- NOTE | 2017-01-06 09:28 | Admit Criteria Form ---
Admission Criteria Documentation: HEART FAILURE: COMMON COMPLICATIONS Clinical Indications for Inpatient Care (Place 'X' for any and all applicable criteria): Ongoing inpatient care may be indicated for heart failure with ANY ONE of the following (1)(2)(3)(4)(5): [ ]I. Ongoing need for care for primary condition requiring frequent therapy adjustments because of changes in cardiac function (eg, drug dosage changes for drugs that are renally metabolized) [ ]II. New-onset heart failure [ ]III. Heart failure with decreased urine output not responsive to attempts to optimize volume status [ ]IV. Acute cardiac ischemia causing or associated with failure [X]V. Complications of heart failure, including ANY ONE of the following: [ ]a) Pericardial effusion [ ]b) Symptomatic pleural effusion [ ]c) O2 saturation <90% or PO2 < 60 mm Hg (8.0 kPa) on room air or require baseline supplemental O2 [ ]d) Tachypnea [X]e) Dyspnea [ ]f) Syncope [ ]g) Change in mental status [ ]h) Acute renal insufficiency that is severe (reduction of more than 50% in estimated glomerular filtration rate from baseline) or progressive reduction of more than 25% in estimated glomerular filtration rate from baseline, with creatinine continuing to rise) [ ]i) Hemodynamic instability [ ]j) Anasarca [ ]k) Clinically significant metabolic abnormalities due to heart failure (eg, new-onset metabolic acidosis) Extended stay beyond goal length of stay for primary condition may be needed until ALL of the following are present(1)(3): [ ]a) Stable and effective diuretic regimen established (or patient on stable dialysis regimen if in chronic renal failure) [ ]b) Breathing comfortably at rest [ ]c) Saturation of arterial oxygen greater than 90% or at acceptable baseline [ ]d) Pulmonary edema absent or improved [ ]e) Hemodynamic stability [ ]f) Volume status acceptable on oral medication [ ]g) Peripheral or sacral edema absent or improved [ ]h) Renal function stable and manageable at a lower level of care [ ]i) Complications (eg, pleural effusion) resolved or manageable at a lower level of care [ ]j) Patient or caregiver has received written discharge instructions or educational material addressing activity level, diet, discharge medications, follow-up appointment, weight monitoring, and what to do if symptoms worsen The original [facility] [employer] content created by [employer] has been revised. The portions of the content which have been revised are identified through the use of italic text or in bold, and [facility] has neither reviewed nor approved the modified material.All other unmodified content is copyright [facility]. Please see references footnoted in the original [facility] edition 2016 Admission Criteria Met: Yes
[2017-01-06] MEDS: DELTASONE PO SCH (10:58)
[2017-01-06] MEDS: COREG PO SCH ×2 (10:59→21:38)
[2017-01-06] MEDS: LASIX IV SCH ×2 (11:00→21:31)
[2017-01-06] MEDS: ROCEPHIN/NS 1 GM/50 ML 1 GM/50 ML BAG IV SCH (11:00)
--- NOTE | 2017-01-06 12:49 | Consultation ---
History of Present Illness Consult date: 01/06/17 Requesting physician: TASH GALINDO Consult reason: congestive heart failure History of present illness: The patient is an 86YO female with a past medical history significant for CKD, sarcoidosis, COPD, HTN, & CMP. She is previously unknown to our practice but reports that she is followed regularly by Dr. Syed. She presented from MD office with c/o progressively worsening SOB, orthopnea, and BLE edema x several weeks [employer]. Per pt report, her most recent echo in September revealed EF of 20%. She denies any chest pain, palpitations, n/v, diaphoresis, dizziness, or syncope. She denies any precipitating, aggravating, or alleviating factors. She denies any prior occurrence of heart failure. Past History Past Medical History: COPD, hypertension, sarcoidosis, other (CKD; CMP) Social history: denies: smoking, alcohol abuse, prescription drug abuse Medications and Allergies Allergies Allergy/AdvReac Type Severity Reaction Status Date / Time Sulfa (Sulfonamide Allergy Hives Verified 12/11/16 17:30 Antibiotics) Home Medications Medication Instructions Recorded Confirmed Last Taken Type ALBUTEROL Inhaler [ProAir HFA 2 puff IH QID PRN 12/12/16 01/05/17 2 Days Ago History Inhaler] Carvedilol [Coreg] 25 mg PO BID 12/12/16 01/05/17 1 Day Ago History Cetirizine HCl [ZyrTEC] 10 mg PO DAILY 12/12/16 12/12/16 12/11/16 History Fluticasone/Salmeterol [Advair 1 dose INNOSTRIL DAILY 12/12/16 12/12/16 History 250-50 Diskus] Levothyroxine [Synthroid] 100 mcg PO QAM 12/12/16 01/05/17 1 Day Ago History Montelukast [Singulair] 10 mg PO QPM 12/12/16 01/05/17 1 Day Ago History Multivit-Min/FA/Lycopen/Lutein 1 each PO DAILY 12/12/16 01/05/17 1 Day Ago History [Centrum Silver Tablet] Vit C/E/Zn/Coppr/Lutein/Zeaxan 1 each PO DAILY 12/12/16 01/05/17 1 Day Ago History [Preservision Areds 2 Softgel] predniSONE [Deltasone] 30 mg PO QDAY #10 tablet 12/15/16 Unknown Rx Active Meds: Active Medications Acetaminophen (Tylenol) 325 mg PO Q6H PRN PRN Reason: Pain, Mild (1-3) Carvedilol (Coreg) 12.5 mg PO BID [facility] Last Admin: 01/06/17 10:59 Dose: 12.5 mg Furosemide (Lasix) 40 mg IV Q12HR [facility] Last Admin: 01/06/17 11:00 Dose: 40 mg Ceftriaxone Sodium (Rocephin/Ns 1 Gm/50 Ml) 1 gm in 50 mls @ 100 mls/hr IV Q24HR [facility] PRN Reason: Protocol Last Admin: 01/06/17 11:00 Dose: 100 mls/hr Levothyroxine Sodium (Synthroid) 50 mcg PO DAILY@0600 [facility] Montelukast Sodium (Singulair) 10 mg PO QHS [facility] Last Admin: 01/05/17 21:03 Dose: 10 mg Prednisone (Deltasone) 20 mg PO QDAY [facility] Last Admin: 01/06/17 10:58 Dose: 20 mg Review of Systems Constitutional: no weight loss, no weight gain, no fever, no chills, no sweats Ears, nose, mouth and throat: no ear pain, no nose pain, no sinus pressure, no sinus pain Cardiovascular: orthopnea, edema, shortness of breath, leg edema, no chest pain , no palpitations, no rapid/irregular heart beat, no syncope, no lightheadedness Respiratory: shortness of breath, no cough, no congestion, no wheezing, no pain Gastrointestinal: no abdominal pain, no nausea, no vomiting, no diarrhea, no constipation Genitourinary Female: no pelvic pain, no flank pain, no dysuria, no urinary frequency, no urgency Musculoskeletal: no neck stiffness, no neck pain, no shooting arm pain, no arm numbness/tingling, no low back pain, no shooting leg pain, no leg numbness/ tingling Integumentary: no rash, no pruritis, no redness Neurological: no head injury, no paralysis, no weakness, no parathesias, no numbness, no tingling, no seizures, no syncope, no headaches, no change in speech, no change in mentation, no confusion Endocrine: no cold intolerance, no heat intolerance Hematologic/Lymphatic: no easy bruising, no easy bleeding, no lymphadenopathy Allergic/Immunologic: no urticaria, no wheezing, no persistent infections Physical Examination Last Vital Signs Temp 97.8 F 01/06/17 05:08 Pulse 76 01/06/17 10:59 Resp 18 01/06/17 05:08 BP 144/81 01/06/17 10:59 Pulse Ox 99 01/06/17 05:08 General appearance: no acute distress HEENT: Positive: PERRL, Normocephaly, Mucus Membranes Moist Neck: Positive: neck supple, trachea midline Cardiac: Positive: Reg Rate and Rhythm, S1/S2 Lungs: Positive: Wheezes (expiratory fine wheezes ), Other (prolonged expiration ). Negative: Rales Neuro: Positive: Grossly Intact, Cranial Nerve 2-12 Intact Abdomen: Positive: Unremarkable, Soft, Active Bowel Sounds. Negative: Tender Skin: Positive: Clear. Negative: Rash Musculoskeletal: No Pain Extremities: Present: upper extr. pulses, lower extr. pulses, +2 Edema (BLE ) Results 01/05/17 16:00 01/06/17 04:38 Cardiac Enzymes 01/05/17 Range/Units 16:00 AST 25 (5-40) units/L CBC 01/05/17 Range/Units 16:00 WBC 14.6 H (4.5-11.0) K/mm3 RBC 4.23 (3.65-5.03) M/mm3 Hgb 12.3 (10.1-14.3) gm/dl Hct 39.5 (30.3-42.9) % Plt Count 117 L (140-440) K/mm3 Comprehensive Metabolic Panel 01/05/17 01/06/17 Range/Units 16:00 04:38 Sodium 144 147 H (137-145) mmol/L Potassium 5.0 5.0 (3.6-5.0) mmol/L Chloride 105.3 107.2 H (98-107) mmol/L Carbon Dioxide 23 25 (22-30) mmol/L BUN 88 H 89 H (7-17) mg/dL Creatinine 2.4 H 2.7 H (0.7-1.2) mg/dL Glucose 115 H 127 H (65-100) mg/dL Calcium 9.1 8.7 (8.4-10.2) mg/dL AST 25 (5-40) units/L ALT 56 (7-56) units/L Alkaline Phosphatase 118 (35-129) units/L Total Protein 5.8 L (6.3-8.2) g/dL Albumin 3.1 L (3.9-5) g/dL - Imaging and Cardiology Echo: pending EKG: report reviewed, image reviewed EKG interpretations - Telemetry EKG Rhythm: Sinus Rhythm - EKG Sinus rhythms and dysrhythmias: sinus rhythm Assessment and Plan Assessment: Acute heart failure - presumably systolic as pt reports recent echo with EF of 20%. CMP HTN DIANE on CKD Sarcoidosis COPD Leukocytosis Thrombocytopenia Plan: Await echo. Cont diuresis with IV lasix per nephrology. Repeat BMP in AM. Cont Coreg. No ACEI/ARB at this time in setting of DIANE on CKD. Medical records from [place] requested. Per nephrology, consider SUPERVISOR RECLAMATION with HD if necessary for volume optimization. Assessment and plan reviewed with pt and pt's granddaughter at bedside. The patient has been seen in conjunction with Dr. Sophy Landa who agrees with the assessment and plan of care.
[2017-01-06] MEDS: SYNTHROID PO SCH (17:43)
[2017-01-06] MEDS: SINGULAIR PO SCH (21:38)
[2017-01-07] MEDS ORDERED: LOPRESSOR IV ONE (00:24)
[2017-01-07] MEDS: SYNTHROID PO SCH (05:33)
[2017-01-07 05:51] LABS: Basophils % (Auto) 0.1 % (0.0-1.8); Eosinophils % (Auto) 0.1 % (0.0-4.3); Hemoglobin 11.5 gm/dl (10.1-14.3); Mean Corpuscular HGB Conc 32 % (30-34); Mean Corpuscular Hemoglobin 30 pg (28-32); Mean Corpuscular Volume 92 fl (79-97); Platelet Count 96 K/mm3 (140-440); Red Cell Distribution Width 17.2 % (13.2-15.2); White Blood Count 9.4 K/mm3 (4.5-11.0)
[2017-01-07 06:14] LABS: Albumin 2.5 g/dL (3.9-5); BUN/Creatinine Ratio 30.68; Bilirubin,Total 0.3 mg/dL (0.1-1.2); Calcium 8.2 mg/dL (8.4-10.2); Chloride 108.3 mmol/L (98-107); Potassium 4.3 mmol/L (3.6-5.0)
--- NOTE | 2017-01-07 09:16 | Progress Note ---
Assessment and Plan - Patient Problems (1) Acute on chronic systolic HF (heart failure) Current Visit: Yes Status: Acute Plan to address problem: Pt with multiple comorbid conditions with poor prognosis. Pt and family understand her clinical condition which will not drastically improve. pt wants to be at home with her family. Will discharge pt today with [facility] and home PT. Spoke with manager case management. D/Chica Kaba. Palliative care per discussion with family. (2) Acute kidney injury superimposed on CKD Current Visit: Yes Status: Acute (3) Acute and chronic respiratory failure Current Visit: Yes Status: Acute Qualifiers: Respiratory failure complication: R (4) Hypernatremia Current Visit: Yes Status: Acute (5) Physical deconditioning Current Visit: Yes Status: Chronic (6) HTN (hypertension) Current Visit: Yes Status: Chronic Qualifiers: Hypertension type: H (7) COPD (chronic obstructive pulmonary disease) Current Visit: No Status: Acute Qualifiers: COPD type: C Chronic bronchitis type: C Emphysema type: E (8) Hx of sarcoidosis Current Visit: No Status: Chronic (9) Leg edema Current Visit: No Status: Acute Qualifiers: Laterality: bilateral Qualified Code(s): R60.0 - Localized edema (10) Weight loss Current Visit: Yes Status: Chronic (11) Hypothyroidism Current Visit: Yes Status: Acute Qualifiers: Hypothyroidism type: H Subjective Date of service: 01/07/17 Interval history: pt is alert, oriented, feeling little better, weakness same, leg swelling slightly better, want to go home Objective - Vital Signs Vital signs: Vital Signs - 12hr 01/06/17 01/07/17 01/07/17 22:00 00:29 06:03 Temperature 97.6 F 98.2 F Pulse Rate 86 Pulse Rate [ 86 148 H 79 Left Radial] Respiratory 18 18 20 Rate Blood Pressure 123/70 143/88 [Left Arm] O2 Sat by Pulse 97 93 Oximetry - General Appearance General appearance: chronically ill, other (cachectic) EENT: mucous membranes dry Neck: no JVD Respiratory: Present: Decreased Breath Sounds Cardiology: regular, systolic murmur Gastrointestinal: normoactive bowel sounds Integumentary: other (brittle skin) Neurologic: alert and oriented x3 Musculoskeletal: other (1+ edema) Psychiatric: mood/affect appropriate, cooperative - Lab 01/07/17 04:53 01/07/17 04:53 Most recent lab results Calcium 8.2 mg/dL (8.4-10.2) L 01/07/17 04:53 Urine Creatinine 16.8 mg/dL (0.1-20.0) 01/05/17 00:00 Urine Sodium 121 mEq/L 01/05/17 00:00
[2017-01-07] MEDS: DELTASONE PO SCH (09:52)
[2017-01-07] MEDS: COREG PO SCH (09:52)
[2017-01-07] MEDS: LASIX IV SCH (09:52)
[2017-01-07] MEDS: ROCEPHIN/NS 1 GM/50 ML 1 GM/50 ML BAG IV SCH (09:57)
[2017-01-07] MEDS ORDERED: COLACE PO SCH (10:00)
--- NOTE | 2017-01-07 13:00 | Progress Note ---
Assessment and Plan Assessment: Acute on chronic biventricular systolic heart failure CMP - EF 15 -20% HTN DIANE on CKD - renal indices trending upwards; pt reports that she does not wish to undergo HD. Sarcoidosis COPD Leukocytosis Thrombocytopenia Severe pulmonary HTN Moderate MR / Moderate TR Advanced age Plan: Echo reviewed - 01/06/2017: EF 15-20%, mod MR, mod TR, severe pulmonary HTN, RVSP 97mmHg Cont diuresis with lasix per nephrology. Pt states that she has declined HD and thus has been cleared for discharge home on PO lasix per nephrology. Cont Coreg. No ACEI/ARB at this time in setting of DIANE on CKD. Currently stable cardiac status. Patient may discharge home from a cardiology standpoint. Recommend follow-up with primary electrical inspector in 1-2 weeks from hospital discharge. Assessment and plan reviewed with pt and pt's granddaughter at bedside. The patient has been seen in conjunction with Dr. Sophy Landa who agrees with the assessment and plan of care. Subjective Date of service: 01/07/17 Principal diagnosis: daily on chronic biventricular systolic heart failure Interval history: patient resting comfortably in bed, states she feels better but is still unable to lie flat due to orthopnea, vital signs stable, family at bedside. Objective Last Vital Signs Temp 97.1 F L 01/07/17 09:40 Pulse 83 01/07/17 09:52 Resp 18 01/07/17 09:40 BP 159/94 01/07/17 09:52 Pulse Ox 91 01/07/17 09:40 - Physical Examination General: Appears Well, No Apparent Distress HEENT: Positive: PERRL, Normocephaly, Mucus Membranes Moist Neck: Positive: neck supple, trachea midline Cardiac: Positive: Reg Rate and Rhythm, S1/S2 Lungs: Positive: Normal Exam, clear to auscultation, Normal Breath Sounds Neuro: Positive: Grossly Intact, Cranial Nerve 2-12 Intact Abdomen: Positive: Unremarkable, Soft, Active Bowel Sounds. Negative: Tender Skin: Positive: Clear. Negative: Rash Musculoskeletal: No Pain Extremities: Present: upper extr. pulses, lower extr. pulses, +1 Edema (BLE ) - Labs and Meds Cardiac Enzymes 01/07/17 Range/Units 04:53 AST 20 (5-40) units/L CBC 01/07/17 Range/Units 04:53 WBC 9.4 (4.5-11.0) K/mm3 RBC 3.90 (3.65-5.03) M/mm3 Hgb 11.5 (10.1-14.3) gm/dl Hct 36.0 (30.3-42.9) % Plt Count 96 L (140-440) K/mm3 Lymph # 0.3 L (1.2-5.4) K/mm3 [place] # 0.6 (0.0-0.8) K/mm3 Eos # 0.0 (0.0-0.4) K/mm3 Baso # 0.0 (0.0-0.1) K/mm3 Comprehensive Metabolic Panel 01/07/17 Range/Units 04:53 Sodium 146 H (137-145) mmol/L Potassium 4.3 (3.6-5.0) mmol/L Chloride 108.3 H (98-107) mmol/L Carbon Dioxide 23 (22-30) mmol/L BUN 89 H (7-17) mg/dL Creatinine 2.9 H (0.7-1.2) mg/dL Glucose 124 H (65-100) mg/dL Calcium 8.2 L (8.4-10.2) mg/dL AST 20 (5-40) units/L ALT 45 (7-56) units/L Alkaline Phosphatase 106 (35-129) units/L Total Protein 5.0 L (6.3-8.2) g/dL Albumin 2.5 L (3.9-5) g/dL - Imaging and Cardiology EKG: report reviewed, image reviewed Echo: report reviewed (01/06/2017: EF 15-20%, mod MR, mod TR, severe pulmonary HTN, RVSP 97mmHg) - EKG Sinus rhythms and dysrhythmias: sinus rhythm
[2017-01-07 17:41] VITALS: BP 151/82
--- NOTE | 2017-01-07 17:54 | Discharge Summary ---
Providers - Providers Date of Admission: 01/05/17 15:41 Date of discharge: 01/07/17 Attending physician: TASH GALINDO 01/06/17 10:15 Consult to Physician [CONS] Routine Consulting Provider: RACHNA COFFMAN Reason For Exam: chf Place consult to:: [facility] Notified:: y 01/06/17 18:10 Physical Therapy Evaluation and Treat [CONS] Routine Comment: Reason For Exam: deconditioning 01/07/17 10:13 Consult to Wound/ET Nurse [CONS] Routine Reason For Exam: wound eval blisters bilat heels. Primary care physician: TASH GALINDO Hospitalization Condition: Poor Disposition: DC/TX HOME UNDER HOME HEALTH - Discharge Diagnoses (1) Acute on chronic systolic HF (heart failure) Status: Acute (2) Acute kidney injury superimposed on CKD Status: Acute (3) Acute and chronic respiratory failure Status: Acute Qualifiers: Respiratory failure complication: R (4) Hypernatremia Status: Resolved (5) Physical deconditioning Status: Chronic (6) HTN (hypertension) Status: Chronic Qualifiers: Hypertension type: H (7) COPD (chronic obstructive pulmonary disease) Status: Chronic Qualifiers: COPD type: C Chronic bronchitis type: C Emphysema type: E (8) Hx of sarcoidosis Status: Chronic (9) Leg edema Status: Acute Qualifiers: Laterality: bilateral Qualified Code(s): R60.0 - Localized edema (10) Weight loss Status: Chronic (11) Hypothyroidism Status: Chronic Qualifiers: Hypothyroidism type: H Core Measure Documentation - Palliative Care Palliative Care/ Comfort Measures: Palliative Care/Comfort Measures - Core Measures Any of the following diagnoses?: heart failure (not on RADHA-I or ARB due to kidney failure) - VTE Discharge Requirements Deep Vein Thrombosis/Pulmonary Embolism Present on Admission: No - Heart Failure Discharge Requirements RADHA/ARB for LVSD if EF <40%: No Reason for no RADHA/ARB: Renal impairment Beta viet at discharge: Yes Exam - Constitutional Vitals: Temp Pulse Resp BP Pulse Ox 97.7 F 79 16 151/82 91 01/07/17 17:39 01/07/17 17:39 01/07/17 17:39 01/07/17 17:39 01/07/17 17:39 General appearance: Present: cachectic - Respiratory Respiratory: bilateral: diminished - Cardiovascular Rhythm: regular Heart Sounds: Present: systolic murmur - Extremities Extremity abnormal: edema - Abdominal General gastrointestinal: Present: normal bowel sounds - Integumentary Integumentary: Present: dry Plan Activity: advance as tolerated Diet: low salt Special Instructions: restrict fluid intake to (1500 ml/day) Durable Medical Equipment Needed Upon Discharge: Walker[employer]Rolling (pt to continue Furosemide 20 mg bid, Prednisone 10 mg qd x 2wks, then 5 mg qd, Levothyroxine- 50 mcg, other home meds same) Follow up with: TASH GALINDO MD [Primary Care Provider] - 7 Days
--- NOTE | 2017-01-07 23:34 | Discharge Summary ---
REASON FOR ADMISSION: This 86-year-old female with a history of chronic kidney disease, sarcoidosis, hypertension, severe cardiomyopathy, was admitted with increasing shortness of breath with orthopnea and significant swelling of her lower extremities with the blisters over her feet with generalized weakness. Her admission lab showed sodium of 144, potassium of 5.0, chloride 105, CO2 23, BUN 88, creatinine 2.4, glucose 115, albumin 3.1. WBC 14.6, hemoglobin 12.3, hematocrit 39.5, platelets 117,000. HOSPITAL COURSE: The patient received IV Lasix. The patient's urine output has gotten better. Cardiology consult was obtained by Dr. Landa. Her echocardiogram on 01/05/2017 showed left ventricular ejection fraction of 15-20%, moderate mitral regurgitation and tricuspid regurgitation, severe pulmonary hypertension, no pericardial effusion. Given her multiple comorbid conditions, after discussion with the patient and family, the patient decided to go with palliative care with no life prolonging measures. The patient signed a DNR form. Home health services and physical therapy consult requested. The patient to go home with home health services and home physical therapy. Later on down the road, the patient would consider home hospice if needed. Her labs on 01/07/2017 showed BUN of 89, creatinine of 2.9, potassium 4.3, sodium level 146, glucose 124, calcium 8.2, albumin 2.5. WBC 9.4, hemoglobin 11.5, hematocrit 36.0, platelets 96,000. The patient's urine culture from 01/05/2017 was growing gram-negative rods. She received IV Rocephin 1 gram once a day. She was noted to have low TSH level. Her levothyroxine dose was reduced to 50 mcg from 100 mcg. The patient was maintained on prednisone 20 mg a day. DISCHARGE MEDICATIONS: Carvedilol 12.5 mg p.o. b.i.d., furosemide 20 mg p.o. b.i.d., levothyroxine 50 mcg once a day, Singulair 10 mg once a day, prednisone 20 mg p.o. once a day for 2 weeks and then 10 mg once a day, ciprofloxacin 250 mg p.o. b.i.d. for 3 days. DISCHARGE DIAGNOSES: 1. acute on chronic systolic heart failure. 2. Acute on chronic kidney disease, stage 4. 3. Chronic physical deconditioning. 4. Hypoalbuminemia with malnutrition. 5. Hypothyroidism. 6. Chronic obstructive pulmonary disease. 7. History of sarcoidosis. 8. Hypertension. DISCHARGE INSTRUCTIONS: The patient to go home with home health services. DIET: 2 gram sodium diet, fluid restriction 1500 mL per day. ACTIVITY: As tolerated. Discharge instructions were given to the patient and the patient's granddaughter and daughter at bedside. Spent over 35 minutes for the discharge process. The patient's Kaba catheter was taken out prior to discharge. JOB# [id number] MENA/GIA
== END 2017-01-07 19:50 | disposition home health service (06) | DRG 291 ==
LOC: 4A 15:01 → UNDOADMIN 15:01 → 4A 15:41
DX: I13.0 Hypertensive heart and chronic kidney disease with heart failure and stage 1 through stage 4 chronic kidney disease, or unspecified chronic kidney disease (principal); I50.23 Acute on chronic systolic (congestive) heart failure; J96.20 Acute and chronic respiratory failure, unspecified whether with hypoxia or hypercapnia; N17.9 Acute kidney failure, unspecified; E87.0 Hyperosmolality and hypernatremia; N18.4 Chronic kidney disease, stage 4 (severe); E46 Unspecified protein-calorie malnutrition; Z68.1 Body mass index [BMI] 19.9 or less, adult; I42.9 Cardiomyopathy, unspecified; D86.9 Sarcoidosis, unspecified; D69.6 Thrombocytopenia, unspecified; J44.9 Chronic obstructive pulmonary disease, unspecified; E03.9 Hypothyroidism, unspecified; I27.2 Other secondary pulmonary hypertension; I34.0 Nonrheumatic mitral (valve) insufficiency; I07.1 Rheumatic tricuspid insufficiency; Z88.2 Allergy status to sulfonamides; Z90.49 Acquired absence of other specified parts of digestive tract; Z90.710 Acquired absence of both cervix and uterus
CPT/HCPCS: 36415; 71020; 80048; 80053; 81003; 82436; 82570; 82962; 83880; 84300; 84443; 85007; 85025; 87076; 87086; 87186; 93306; J0696; J1940; J7512